=== PATIENT | female | born 1990 | race Caucasian/White ===

== ENCOUNTER 2017-01-23 03:22 | Inpatient (IN) | payer OTHER ==
[2017-01-23] MEDS ORDERED: SODIUM CHLORIDE 0.9% 500 ML INFUS.BAG IV ONE (03:58)
[2017-01-23] MEDS ORDERED: ACETAMINOPHEN 1000 MG/100 ML VIAL (NON FORMULARY) IVPB ONE (03:58)
[2017-01-23] MEDS ORDERED: CLINDAMYCIN 600MG PREMIX IVPB 50 ML IVPB ONE ×2 (03:58→04:36)
--- NOTE | 2017-01-23 04:00 | PDOC ---
History of Present Illness - General History Source: Patient Exam Limitations: No Limitations - History of Present Illness Initial Comments: 01/23/17 05:40 The patient is a 26-year-old female with a significant past medical history of asthma, anemia, gastritis, Von-Willebrand disease, and presents to the emergency department with difficulty swallowing and throat pain for 3 days. She reports she feels a lump in her throat, and is having difficulty talking and eating as well. She reports an associated headache for 3 days. She states her symptoms are worsening. The patient denies chest pain, shortness of breath, and dizziness. The patient denies fever, chills, nausea, vomit, diarrhea and constipation. The patient denies dysuria, frequency, urgency and hematuria. Allergies: penicillin, almonds, nuts, papaya seeds Past Surgical History: None reported Social History: No toxic habits reported <Nadja Cerna - Last Filed: 01/23/17 06:19> <Sumaya Pascual - Last Filed: 01/23/17 06:22> - General Chief Complaint: Pain Stated Complaint: CHEST PAIN Time Seen by Provider: 01/23/17 03:40 Past History <Nadja Cerna - Last Filed: 01/23/17 06:19> <Sumaya Pascual - Last Filed: 01/23/17 06:22> - Past Medical History Allergies/Adverse Reactions: Allergies Allergy/AdvReac Type Severity Reaction Status Date / Time Penicillins Allergy Severe Hives Verified 01/23/17 03:54 nuts Allergy Uncoded 01/23/17 03:54 Review of Systems - Review of Systems Able to Perform ROS?: Yes Comments:: 01/23/17 05:41 CONSTITUTIONAL: Absent: fever, chills, diaphoresis, generalized weakness, malaise, loss of appetite HEENT: Present: (+) throat swelling, (+) throat pain, (+) difficulty swallowing Absent: rhinorrhea, nasal congestion, mouth swelling, ear pain, eye pain, visual changes CARDIOVASCULAR: Absent: chest pain, syncope, palpitations, irregular heart rate, lightheadedness , peripheral edema RESPIRATORY: Absent: cough, shortness of breath, dyspnea with exertion, orthopnea, wheezing, stridor, hemoptysis GASTROINTESTINAL: Absent: abdominal pain, abdominal distension, nausea, vomiting, diarrhea, constipation, melena, hematochezia GENITOURINARY: Absent: dysuria, frequency, urgency, hesitancy, hematuria, flank pain, genital pain MUSCULOSKELETAL: Absent: myalgia, arthralgia, joint swelling SKIN: Absent: rash, itching, pallor HEMATOLOGIC/IMMUNOLOGIC: Absent: easy bleeding, easy bruising, lymphadenopathy, frequent infections ENDOCRINE: Absent: unexplained weight gain, unexplained weight loss, heat intolerance, cold intolerance NEUROLOGIC: Present: (+) headache Absent: focal weakness or paresthesias, dizziness, unsteady gait, seizure, mental status changes, bladder or bowel incontinence PSYCHIATRIC: Absent: anxiety, depression, suicidal or homicidal ideation, hallucinations. <Nadja Cerna - Last Filed: 01/23/17 06:19> *Physical Exam - Vital Signs Last Vital Signs Temp Pulse Resp BP Pulse Ox 99.9 F H 125 H 20 128/81 100 01/23/17 03:54 01/23/17 03:54 01/23/17 03:54 01/23/17 03:54 01/23/17 03:54 - Physical Exam Comments: 01/23/17 05:42 GENERAL: (+) Febrile. Well developed, well nourished. Awake and alert. No acute distress. HEENT: (+) Peritonsillar swelling bilaterally, left more than right, with large exudates bilaterally in tonsils. (+) Trismus. Normocephalic, atraumatic. PERRLA , EOMI. No conjunctival pallor. Sclera are non-icteric. (+) Dry mucous membranes. NECK: Supple. Full ROM. No JVD. Carotid pulses 2+ and symmetric, without bruits. No thyromegaly. No lymphadenopathy. CARDIOVASCULAR: (+) Tachycardic. Regular rhythm. No murmurs, rubs, or gallops. Distal pulses are 2+ and symmetric. PULMONARY: No evidence of respiratory distress. Lungs clear to auscultation bilaterally. No wheezing, rales or rhonchi. ABDOMINAL: Soft. Non-tender. Non-distended. No rebound or guarding. No organomegaly. Normoactive bowel sounds. MUSCULOSKELETAL Normal range of motion at all joints. No bony deformities or tenderness. No CVA tenderness. EXTREMITIES: No cyanosis. No clubbing. No edema. No calf tenderness. SKIN: Warm and dry. Normal capillary refill. No rashes. No jaundice. NEUROLOGICAL: Alert, awake, appropriate. Cranial nerves 2-12 intact. No deficits to light touch and temperature in face, upper extremities and lower extremities. No motor deficits in the in face, upper extremities and lower extremities. Normoreflexic in the upper and lower extremities. Normal speech. Toes are down- going bilaterally. PSYCHIATRIC: Cooperative. Good eye contact. Appropriate mood and affect. <Nadja Cerna - Last Filed: 01/23/17 06:19> ED Treatment Course - LABORATORY CBC & Chemistry Diagram: 01/23/17 04:30 01/23/17 04:30 - ADDITIONAL ORDERS Additional order review: Laboratory Results 01/23/17 01/23/17 04:30 04:30 Sodium 140 Potassium 3.3 L Chloride 102 Carbon Dioxide 28 Anion Gap 10 BUN 7 Creatinine 0.7 Creat Clearance w eGFR > 60 Random Glucose 105 Calcium 8.8 Total Bilirubin 0.9 AST 13 L ALT 18 Alkaline Phosphatase 87 Total Protein 7.6 Albumin 3.5 Blood Type O POSITIVE Antibody Screen Negative 01/23/17 04:30 RBC 4.58 MCV 78.4 L MCHC 32.4 RDW 13.5 MPV 7.6 Neutrophils % 85.2 H Lymphocytes % 5.3 L Monocytes % 9.2 Eosinophils % 0.1 Basophils % 0.2 - Medications Given in the ED: ED Medications Discontinued Medications Generic Name Dose Route Start Last Admin Trade Name Seferinoq PRN Reason Stop Dose Admin Acetaminophen 1,000 mg 01/23/17 03:58 01/23/17 04:51 Ofirmev Injection - IVPB 01/23/17 03:59 1,000 mg ONCE ONE Administration Clindamycin Phosphate 50 mls @ 100 mls/hr 01/23/17 03:58 01/23/17 04:52 Cleocin 600 Mg Premix Ivpb - IVPB 01/23/17 04:27 100 mls/hr ONCE ONE Administration Sodium Chloride 1,000 ml 01/23/17 03:58 01/23/17 04:52 Normal Saline - IV 01/23/17 03:59 1,000 ml ONCE ONE Administration <Nadja Cerna - Last Filed: 01/23/17 06:19> - LABORATORY CBC & Chemistry Diagram: 01/23/17 04:30 01/23/17 04:30 <Sumaya Pascual - Last Filed: 01/23/17 06:22> Medical Decision Making - Medical Decision Making 01/23/17 05:54 Pt comes with fever, tachycardia, body aches, 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 I will not incise the left LEHR OPERATOR which is griffiths than the right side, as she has a bleeding disorder. I will admit the patient for IV anx treatment with clindamycin and for IV hydration and repletion of her electrolytes. SHe also will require ENT consult for potential LEHR OPERATOR drainage <Sumaya Pascual - Last Filed: 01/23/17 06:22> *DC/Admit/Observation/Transfer - Attestations Scribe Attestion: 01/23/17 05:42 Documentation prepared by Nadja Cerna, acting as medical surgery nurse for Sumaya Pascual MD. <Nadja Cerna - Last Filed: 01/23/17 06:19> - Discharge Dispostion Admit: Yes <Sumaya Pascual - Last Filed: 01/23/17 06:22> Diagnosis at time of Disposition: Peritonsillar abscess, Dehydration, Fever, Von Willebrand disease, Penicillin allergy - Discharge Dispostion Condition at time of disposition: Guarded
[2017-01-23 04:06] VITALS: BMI 26.1
[2017-01-23] MEDS ORDERED: ACETAMINOPHEN INJECTION 100 ML IVPB ONE (04:36)
[2017-01-23 04:44] LABS: BASOPHIL 0.2 % (0-2.0); EOSINOPHIL 0.1 % (0-4.5); MCH 25.4 pg (25.7-33.7); MCHC 32.4 g/dl (32.0-36.0); MEAN CELL VOLUME 78.4 fl (80-96); MEAN PLT VOLUME 7.6 fl (7.5-11.1); NEUTROPHILS 85.2 % (42.8-82.8); PLATELET COUNT 234 K/MM3 (134-434); RDW 13.5 % (11.6-15.6); WHITE BLOOD COUNT 13.1 K/mm3 (4.0-10.0)
[2017-01-23 05:05] LABS: ALBUMIN 3.5 g/dl (3.4-5.0); ANION GAP 10 (8-16); CALCIUM 8.8 mg/dL (8.5-10.1); CO2 28 mmol/L (21-32); CREATININE 0.7 mg/dL (0.55-1.02); GLUCOSE,RANDOM 105 mg/dL (74-106); SGOT/AST 13 U/L (15-37); SGPT/ALT 18 U/L (12-78)
[2017-01-23 05:07] LABS: ALK PHOS 87 U/L (45-117); BILIRUBIN,TOTAL 0.9 mg/dL (0.2-1.0); TOT PROT 7.6 g/dl (6.4-8.2)
[2017-01-23] MEDS ORDERED: MAGNESIUM SULF 50% (8.12 MEQ/2 ML-1 GM VIAL) IVPB ONE (05:43)
[2017-01-23 05:46] LABS: INR 1.46 (0.82-1.09); PROTHROMBIN TIME (PATIENT) 16.2 SEC (9.98-11.88)
[2017-01-23] MEDS ORDERED: morphine CARPU-JECT 2 MG/1 ML DISP.SYRIN IVPUSH ONE ×3 (06:05→16:01)
[2017-01-23] MEDS ORDERED: MAGNESIUM SULF 50% (8.12 MEQ/2 ML-1 GM VIAL) ONE (06:21)
[2017-01-23] MEDS ORDERED: morphine CARPU-JECT 2 MG/1 ML DISP.SYRIN ONE (07:03)
[2017-01-23] MEDS ORDERED: SODIUM CHLORIDE 1,000 ML IV SCH (09:30)
[2017-01-23] MEDS ORDERED: DEXAMETHASONE SOD PHOSPHATE 10 MG/1 ML VIAL IVPB ONE (09:45)
--- NOTE | 2017-01-23 09:48 | PN ---
Teaching Attending Note Name of Resident: Ramona Blackwell ATTENDING PHYSICIAN STATEMENT I saw and evaluated the patient. I reviewed the resident's note and discussed the case with the resident. I agree with the resident's findings and plan as documented. SUBJECTIVE:26yo F c/o dysphagia since yesterday. 3 days ago began to have throat pain whom she saw her PMD who did throat swab and was told negative for strep and was given Zpack and motrin with no improvement. last night started to develop severe worsening pain assoc with drooling and sensation that her throat was closing. assoc with MORELAND and subjective fevers. has been treated for pharyngitis in the past but never this severe. denies CP, SOB, chills, N/V/C/D, recent dental work OBJECTIVE: Last Vital Signs Temp Pulse Resp BP Pulse Ox 99.6 F 108 H 20 117/66 100 01/23/17 09:00 01/23/17 09:00 01/23/17 09:00 01/23/17 09:00 01/23/17 07:00 General NAD HEENT erythematous abscess on L with deviation of the uvula. unable to appreciate any exudate. no stridor no LN, no throat tenderness. CV S1 S2 tachycardic Lungs CTA B/L no wheezing/rales/rhonchi ASSESSMENT AND PLAN: 26yo F wtih PMH asthma, GERD and VW deficiency presented to the ER with dysphagia 1. Sepsis due to Peritonsillar abscess- medicine admission. stat consult placed to ENT. CT with contrast soft tissues of the neck. NPO, NS @ 100cc/h, started on CLindamycin due to PCN allergy (angiodema), repeat rapid strep test, check BCx. pain control 2. Hypokalemia- Kcl 20meq add to IVF x1L 3. asthma- no signs of acute exacerbation. nebs prn 4. GERD- does not take medications at home. 5. DVT ppx- EAM
--- NOTE | 2017-01-23 10:13 | HP ---
CHIEF COMPLAINT: " Difficulty in swallowing, fever, chills" PCP: No PCP (wants to see a doctor in [facility]) HISTORY OF PRESENT ILLNESS: Patient is a 26 year old female past medical history of asthma, anemia, gastritis, Von-Willebrand disease presented to the ED with the chief complaints of difficulty in swallowing, fever, chills. As per the patient, she was apparently well until 4 days ago then suddenly she developed difficulty in swallowing. She went to urgent care 3 days ago, was given Z-sudhir and Motrin, has been taking it daily since 3 days but symptoms didn't get better, started getting worse. Patient mentions that she was drooling, had sob, palpitations due to pain and came in to the ED. In the past, she had pharyngitis but nothing severe. Difficulty in swallowing is associated with severe pain from left side of the neck and radiates to her ears. Also mentions that she had a temp of 104 F, associated with chills, rigors and sweating. Denies chest pain, abdominal pain, nausea or vomiting. Bowel/Bladder habit normal. Sleep/Appetite normal. 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 PAST MEDICAL HISTORY: asthma, anemia, gastritis, Von-Willebrand disease PAST SURGICAL HISTORY: None Social History: Smoking: Smokes Hookah occasionally Alcohol: Occasional Drugs: Denies Family History: Grandfather-Lung cancer; Aunt- cancer of the Upper GI tract. Allergies Penicillins Allergy Anaphylaxis (Severe, Verified 01/23/17 03:54) Hives nuts Allergy (Uncoded 01/23/17 03:54) HOME MEDICATIONS: Home Medications Medication Instructions Recorded Ascorbate Calcium [Vitamin C] 500 mg PO DAILY 01/23/17 Azithromycin [Zithromax -] 250 mg PO DAILY 01/23/17 Ibuprofen [Motrin -] 800 mg PO Q6H PRN 01/23/17 Pantoprazole Sodium [Protonix] 40 mg PO DAILY 01/23/17 REVIEW OF SYSTEMS CONSTITUTIONAL: Present: fever, chills, diaphoresis, generalized weakness, malaise, loss of appetite Absent: , weight change HEENT: Absent: rhinorrhea, nasal congestion, throat pain, throat swelling, difficulty swallowing, mouth swelling, ear pain, eye pain, visual changes CARDIOVASCULAR: Present: Palpitation Absent: chest pain, syncope, palpitations, irregular heart rate, lightheadedness , peripheral edema RESPIRATORY: Present: SOB Absent: cough, shortness of breath, dyspnea with exertion, orthopnea, wheezing, stridor, hemoptysis GASTROINTESTINAL: Absent: abdominal pain, abdominal distension, nausea, vomiting, diarrhea, constipation, melena, hematochezia GENITOURINARY: Absent: dysuria, frequency, urgency, hesitancy, hematuria, flank pain, genital pain MUSCULOSKELETAL: Absent: myalgia, arthralgia, joint swelling, back pain, neck pain SKIN: Absent: rash, itching, pallor HEMATOLOGIC/IMMUNOLOGIC: Absent: easy bleeding, easy bruising, lymphadenopathy, frequent infections ENDOCRINE: Absent: unexplained weight gain, unexplained weight loss, heat intolerance, cold intolerance NEUROLOGIC: Absent: headache, focal weakness or paresthesias, dizziness, unsteady gait, seizure, mental status changes, bladder or bowel incontinence PSYCHIATRIC: Absent: anxiety, depression, suicidal or homicidal ideation, hallucinations. PHYSICAL EXAMINATION Vital Signs - 24 hr 01/23/17 01/23/17 07:00 09:00 Temperature 99.6 F Pulse Rate 108 H Pulse Rate [ 100 H Right Radial] Respiratory 18 20 Rate Blood Pressure 117/66 Blood Pressure 122/80 [Left Arm] O2 Sat by Pulse 100 Oximetry (%) GENERAL: Young female, Awake, alert, and fully oriented, in no acute distress. HEAD: Normal with no signs of trauma. EYES: EOM intact, no pallor or icterus. EARS, NOSE, THROAT: Ears normal. Moist mucous membranes. NECK: Swelling on the Left > Right, Tender LN +, no erythema THROAT: Muffled voice, Unable to see the uvula, Left tonsillar enlargement with a pus draining on the right side of the swelling, not drooling, is spitting saliva. LUNGS: Breath sounds equal, clear to auscultation bilaterally. No wheezes, and no crackles. No accessory muscle use. HEART: Regular rate and rhythm, normal S1 and S2 without murmur, rub or gallop. ABDOMEN: Soft, nontender, not distended, normoactive bowel sounds, no guarding, no rebound, no masses. No hepatomegaly or splenomegaly. MUSCULOSKELETAL: Normal range of motion at all joints. No bony deformities or tenderness. No CVA tenderness. UPPER EXTREMITIES: 2+ pulses, warm, well-perfused. No cyanosis. No clubbing. No peripheral edema. LOWER EXTREMITIES: 2+ pulses, warm, well-perfused. No calf tenderness. No peripheral edema. NEUROLOGICAL: Cranial nerves II-XII intact. Normal speech. Normal gait. PSYCHIATRIC: Cooperative. Good eye contact. Appropriate mood and affect. SKIN: Warm, dry, normal turgor, no rashes or lesions noted, normal capillary refill. Laboratory Results - last 24 hr 01/23/17 06:30 Urine HCG, Qual Negative ASSESSMENT/PLAN: Patient is a 26 year old female past medical history of asthma, anemia, gastritis, Von-Willebrand disease presented to the ED with the chief complaints of difficulty in swallowing, fever, chills. # Sepsis most likely secondary to Peritonsillar abscess C/O difficulty and pain while swallowing x 4days, failed outpatient therapy with z-sudhir, Tmax at home 104 F, muffled voice leukocytosis of 13.1 ; In the ED, was given IV NS, IV Clindamycin ( Penicillin allergy) Admitted in Med-Surg Soft tissue neck CT with contrast done- 2.7 cm x 1.4 x 1.4 cm fluid collection in the left peritonsillar region consistent with abscess formation. IV NS @ 100mls/hr IV Clindamycin 600mg Q8H, would consider adding Vancomycin. IV Decadron 10mg once and IV Decadron 8mg Q8H and to decrease it tomorrow. Tylenol oral solution Q6H IV Morphine 1mg given once ENT consulted: Bed side Nasolaryngoscopy was done-no obstruction in airway. 3cc of pus came out while suctioning, throat culture sent, no I and D performed. Frequent checks overnight recommended. ID consult requested. # Von Willebrands disease Has no signs of bleeding at this time # Hypokalemia 3.3, will repeat and if it is still low, will replete # FEN IV NS @ 100mls/hr Electrolytes to be repeated in am NPO now until the procedure # Prophylaxis For DVT: Ambulating, so no AC FoR GI: Not indicated # Code status: Full Code # Dispo: Admitted in Med. Duration of stay unknown. Illness, Investigation and Plan of care explained to the patient. She verbalized understanding. Case seen and discussed with Dr. Bustillo. Visit type - Emergency Visit Emergency Visit: Yes ED Registration Date: 01/23/17 Care time: The patient presented to the Emergency Department on the above date and was hospitalized for further evaluation of their emergent condition. - New Patient This patient is new to me today: Yes Date on this admission: 01/23/17 - Critical Care Critical Care patient: No
[2017-01-23] MEDS: SODIUM CHLORIDE 1,000 ML IV SCH (10:38)
[2017-01-23] MEDS ORDERED: LIDOCAINE HCL 1%, 10 MG/ML (20ML VIAL) ONE (10:42)
[2017-01-23] MEDS ORDERED: EPINEPHrine 1:1,000 1 MG/1 ML - 30ML VIAL (INJECTION) ONE (10:42)
[2017-01-23] MEDS: CLINDAMYCIN 600MG PREMIX IVPB 50 ML IVPB SCH ×2 (11:26→17:36)
[2017-01-23] MEDS: ACETAMINOPHEN 650 MG/20.3 ML ORAL SOLUTION (CUPS) PO PRN ×2 (13:16→18:08)
[2017-01-23] MEDS ORDERED: KCL 10 MEQ IVPB 100 ML IVPB SCH (13:30)
[2017-01-23] MEDS ORDERED: TETRACAINE/BENZOCAINE/BUTAMBEN 20 GM SPR TP SCH (16:00)
--- NOTE | 2017-01-23 16:25 | CONSULT ---
Consult - text type - Consultation Consultation Note: CHIEF COMPLAINT: " throat pain, difficultly swallowinf HISTORY OF PRESENT ILLNESS: Patient is a 26 year old female past medical history of asthma, anemia, gastritis, Von-Willebrand disease presented to the ED with the chief complaints of difficulty in swallowing, fever, chills. As per the patient, she was apparently well until 4 days ago then suddenly she developed difficulty in swallowing. She went to urgent care 3 days ago, was given Z-sudhir and Motrin, has been taking it daily since 3 days but symptoms didn't get better, started getting worse. Patient reports progressing throat pain. She denies h/o tonsillitis but has reported h/o pharyngitis to others. She reports dysphagia and left neck pain which radiaes to her ear. Also mentions that she had a temp of 104 F, associated with chills, rigors and sweating. Denies chest pain, abdominal pain, nausea or vomiting. Bowel/Bladder habit normal. Sleep/Appetite normal. She reports feeling better since admission early in the AM. ER course was notable for: (1) Temp-99.6 F; Leukocytosis of 13.1, (2) Soft tissue x-ray, CXR (3) IV NS, IV Clindamycin- 600mg q8 on the floor She was given decadron 10mg at 1038 AM and has gotten 2 doses of clinda. 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 PAST MEDICAL HISTORY: asthma, anemia, gastritis, Von-Willebrand disease PAST SURGICAL HISTORY: None Social History: Smoking: Smokes Hookah occasionally Alcohol: Occasional Drugs: Denies Family History: Grandfather-Lung cancer; Aunt- cancer of the Upper GI tract. Allergies Penicillins Allergy Anaphylaxis (Severe, Verified 01/23/17 03:54) Hives nuts Allergy (Uncoded 01/23/17 03:54) HOME MEDICATIONS: Home Medications Medication Instructions Recorded Ascorbate Calcium [Vitamin C] 500 mg PO DAILY 01/23/17 Azithromycin [Zithromax -] 250 mg PO DAILY 01/23/17 Ibuprofen [Motrin -] 800 mg PO Q6H PRN 01/23/17 Pantoprazole Sodium [Protonix] 40 mg PO DAILY 01/23/17 REVIEW OF SYSTEMS CONSTITUTIONAL: Present: fever, chills, diaphoresis, generalized weakness, malaise, loss of appetite HEENT: Absent: rhinorrhea, nasal congestion CARDIOVASCULAR: Present: Palpitations on admission but these have resolved. Absent: chest pain, syncope, irregular heart rate, lightheadedness, peripheral edema RESPIRATORY: Absent: SOB, cough, shortness of breath, dyspnea with exertion, orthopnea, wheezing, stridor, hemoptysis GASTROINTESTINAL: Absent: abdominal pain, abdominal distension, nausea, vomiting, diarrhea, constipation, SKIN: Absent: rash, itching, pallor HEMATOLOGIC/IMMUNOLOGIC Present: easy bleeding Absent: frequent infections ENDOCRINE: Absent: unexplained weight gain, unexplained weight loss, heat intolerance, cold intolerance NEUROLOGIC: Absent: headache, focal weakness or paresthesias, dizziness, unsteady gait, seizure, mental status changes, bladder or bowel incontinence PSYCHIATRIC: Absent: anxiety, depression, suicidal or homicidal ideation, hallucinations. PHYSICAL EXAMINATION Vital Signs - 24 hr 01/23/17 01/23/17 07:00 09:00 Temperature 99.6 F Pulse Rate 108 H Pulse Rate [ 100 H Right Radial] Respiratory 18 20 Rate Blood Pressure 117/66 Blood Pressure 122/80 [Left Arm] O2 Sat by Pulse 100 Oximetry (%) GENERAL: Young female, Awake, alert, and fully oriented, in no acute distress. Voice: moderate hot potato voice HEAD: Normal with no signs of trauma. EYES: EOM intact, no pallor or icterus. EARS Ears normal. NC. Moist mucous membranes. NECK: Left neck + left neck tenderness THROAT: uvula is midline and there is bilateral tonsillar hypertrophy left > right with left tonsil with small area of sloughing tissue centrally which when I pressed on the left soft palate I was able to express about a 3 cc of purulence- culture taken. Neck : left neck tenderness and very mild induration no discrete mass. shoddy LAD on the left . LUNGS: Normal effort HEART: Regular rate and rhythm, normal S1 and S2 without murmur, rub or gallop. ABDOMEN: Soft, nontender, not distended, MUSCULOSKELETAL: Normal range of motion at all joints. No bony deformities or tenderness. EXTREMITIES: No cyanosis. No clubbing. No peripheral edema. NEUROLOGICAL: Cranial nerves II-XII intact. . PSYCHIATRIC: Cooperative. Good eye contact. Appropriate mood and affect. SKIN: Warm, dry, normal turgor, no rashes or lesions Laboratory Results - last 24 hr 01/23/17 06:30 Urine HCG, Qual Negative DFL: NC mild DNS to the left. OMC wnl. NPx: wnl. OC/OP: bilateral tonsilar hypertrophy with small area of sloughing tonsillar tissue on the left with mucopus draining through the necrotic appearing tissue. Hypophaynx laterl pharyngeal wall - no bulge. epiglottis wnl. Arytenoids (right and left ) wnl. VFs mobile bilaterally. Airway widely patent. Imaging Neck CT scan with contrast- images and report reviewed. An approximately 2.7 x 1.4 x 1.4 cm rim-enhancing fluid collection is seen within the left peritonsillar region consistent with abscess formation. The upper border of the abscess extends to the level of the upper oropharynx. The prevertebral and retropharyngeal soft tissue planes appear unremarkable. several mildly prominent posterior triangle and internal jugular chain lymph nodes are seen which are probably reactive in nature The remaining visualized soft tissue structures demonstrate no discrete CT abnormality. IMPRESSION: Left peritonsillar abscess as discussed above. ASSESSMENT/PLAN: Patient is a 26 year old female past medical history of asthma, anemia, gastritis, Von-Willebrand disease with tonsillitis, left peritonsillar abscess and phlegmon and sepsis. I was able to express approximately 3 cc of purulence which was cultured and it is draining spontaneously. Willl hold off on incision I and D given that i was able to express 3 cc of pus and improvement in symtpoms after this as well as patient's h/o Von-Willebrand disease and concern for bleeding in into the oroapharynx/parapharyngeal space. Recommend ID consult as pt is PCN allergic. Cont Decardon 8 q* and will taper as she improves. Patient admitted to medicine as she meets sepsis. criteria. Discussed plan with medical attending who agreed with plan. Will follow.
--- NOTE | 2017-01-23 17:24 | EKG ---
Test Reason : Blood Pressure : / mmHG Vent. Rate : 118 BPM Atrial Rate : 118 BPM P-R Int : 118 ms QRS Dur : 084 ms QT Int : 314 ms P-R-T Axes : 046 062 003 degrees QTc Int : 440 ms SINUS TACHYCARDIA POSSIBLE LEFT ATRIAL ENLARGEMENT BORDERLINE ECG NO PREVIOUS ECGS AVAILABLE Confirmed by MAULIK HEREDIA, ANUPAM ([id number]) on 01/23/2017 5:24:47 PM Referred By: Confirmed By:ANUPAM WILLINGHAM MD
[2017-01-23] MEDS: DEXAMETHASONE SOD PHOSPHATE 4 MG/1 ML VIAL IVPB SCH (18:08)
--- NOTE | 2017-01-24 01:51 | CONSULT ---
Consult - text type - Consultation Consultation Note: Progress note Patient reports doing much much better comfortable,. no drooling voice -much improved only very slight hot potato voice eomi perrla NC: Dns, nml mucosa. OC/OP: tonsils 3+ (decreased hypertrophy), still with small area of sloughing mucosa on the left tonsil. uvula mildline. soft plate- very slight induration. Wide extercusion. Neck: shoddy LAd, decrease left neck tenderness A/P: tonsillitis, left peritonsillar abscess and phlegmon, sepsis- much improved after several doses of clinda and IV steroids. Decrease decadron to 6mg and then 4 mg q 8. Cont Iv abx. OOB and ambulating in AM. Will follow.
[2017-01-24] MEDS: CLINDAMYCIN 600MG PREMIX IVPB 50 ML IVPB SCH ×2 (02:25→11:05)
[2017-01-24] MEDS: DEXAMETHASONE SOD PHOSPHATE 4 MG/1 ML VIAL IVPB SCH ×3 (03:05→20:18)
[2017-01-24 08:01] LABS: ANION GAP 8 (8-16); CALCIUM 8.4 mg/dL (8.5-10.1); CO2 26 mmol/L (21-32); CREATININE 0.4 mg/dL (0.55-1.02); GLUCOSE,RANDOM 133 mg/dL (74-106)
[2017-01-24 08:17] LABS: BASOPHIL 0.1 % (0-2.0); MCHC 33.3 g/dl (32.0-36.0); MEAN CELL VOLUME 78.1 fl (80-96); MEAN PLT VOLUME 7.8 fl (7.5-11.1); NEUTROPHILS 85.6 % (42.8-82.8); PLATELET COUNT 244 K/MM3 (134-434); RDW 13.4 % (11.6-15.6); WHITE BLOOD COUNT 8.3 K/mm3 (4.0-10.0)
[2017-01-24] MEDS ORDERED: PT OWN MED DRAWER 7, Y5N ONE (10:59)
[2017-01-24] MEDS: SODIUM CHLORIDE 1,000 ML IV SCH (11:04)
--- NOTE | 2017-01-24 12:02 | CONSULT ---
Consultation: REQUESTING PROVIDER: CONSULT REQUEST: We have been asked to medically evaluate this patient for peritonsillar abscess. HISTORY OF PRESENT ILLNESS: The patient presented about 2am on Tuesday with a 3 day history of headache, swelling and pain of the left jaw to ear with associated fever. About 4 days prior to presentation, she had noticed a small swelling on the left side of her face that gradually increased in size. She had no ear discharge or prior sore throat. On , she had a severe headache, had nausea and was vomiting and unable to eat. She was also very weak. She went to an urgent care facility where her throat swab for group A strep infection came out negative. She was prescribed Zpac (two doses) and high dose Ibuprofen (800mg) at the urgent care facility on Tuesday. She had some relief initially, but developed increasing fever, nausea and vomiting and increasing swelling of the jaw. She then presented at the ED with severe dysphagia, nausea and vomiting, swollen left jaw and fever. She had imaging done in the ED and had a subcutaneous needle drainage of the abscess done to avoid bleeding, since she has Von Willebrand's disease. Prior to presentation, she had lost her voice but has recovered it today. She had a pharyngitis four months ago that resolved with Zpac. She is also able to eat now and has had no fever since admission. She had some mild cough at the onset of the illness and some chest tightness that she attributes to her ingestion of ibuprofen with her background gastritis. She also complained of a burning sensation in her genitourinary area which she thinks is related to the antibiotic ingestion. No suprapubic pain or flank pain. Since her admission, she has had a repeat throat swab done, a chest CT, and soft tissue imaging of the neck done confirming the abscess. She had 2 doses of clindamycin and began to have redness of the face on the second dose today and burning sensation. The clindamycin has been stopped and switched to vancomycin and flagyl following the dose of levofloxacin today. Drug Allergy:Patient is severely allergic to penicillin and has bronchospasm when she takes penicillin. 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 PMHX: She is a known asthmatic with gastritis, anemia, von Willebrands disease She has a history of recurrent vaginal fungal infection with itching. 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 Denies smoking cigarettes but smokes hooker occasionally. Medication HX: On lansoprazole, desmopressin, uses an epipen REVIEW OF SYSTEMS: CONSTITUTIONAL: Absent: fever, chills, diaphoresis, generalized weakness, malaise, loss of appetite, weight change HEENT: Absent: rhinorrhea, nasal congestion, mild throat pain, mild L throat swelling , no difficulty swallowing, no mouth swelling, no ear pain, eye pain, visual changes CARDIOVASCULAR: Absent: chest pain, syncope, palpitations, irregular heart rate, lightheadedness , peripheral edema RESPIRATORY: Absent: cough, shortness of breath, dyspnea with exertion, orthopnea, wheezing, stridor, hemoptysis GASTROINTESTINAL: Absent: mild epigastric pain, has a history of gastritis, on lansoprazole, no abdominal distension, no nausea, no vomiting, no diarrhea, no constipation, no melena, no hematochezia GENITOURINARY: Absent: dysuria, frequency, urgency, hesitancy, hematuria, flank pain, genital pain MUSCULOSKELETAL: Absent: myalgia, arthralgia, joint swelling, back pain, neck pain SKIN: Absent: rash, itching, pallor HEMATOLOGIC/IMMUNOLOGIC: Has a history of Von Willebrand's disease on desmopressin, no easy bleeding, no easy bruising, no lymphadenopathy, frequent infections. Had tonsillar infections 4 months ago, other than present episode ENDOCRINE: Absent: unexplained weight gain, unexplained weight loss, heat intolerance, cold intolerance NEUROLOGIC: Absent: headache, focal weakness or paresthesias, dizziness, unsteady gait, seizure, mental status changes, bladder or bowel incontinence PSYCHIATRIC: Absent: anxiety, depression, suicidal or homicidal ideation, hallucinations. PHYSICAL EXAMINATION Vital Signs - 24 hr 01/23/17 01/23/17 01/23/17 15:11 21:00 23:00 Temperature 99.3 F 98.9 F Pulse Rate 99 H 87 Respiratory 16 Rate Blood Pressure 137/69 O2 Sat by Pulse 96 Oximetry (%) 01/24/17 01/24/17 01:37 06:11 Temperature 98.5 F 98.5 F Pulse Rate 75 73 Respiratory 18 18 Rate Blood Pressure 107/58 119/66 O2 Sat by Pulse Oximetry (%) GENERAL: Awake, alert, and fully oriented, in no acute distress. HEAD: Normal with no signs of trauma. Mild redness below both eyes bilaterally and extending to left jaw margin. EYES: Pupils equal, round and reactive to light, extraocular movements intact, sclera anicteric, conjunctiva clear. No lid lag. EARS, NOSE, THROAT: Ears normal, nares patent, oropharynx, enlarged tonsils without exudates. Moist mucous membranes. NECK: Normal range of motion, supple without lymphadenopathy, JVD, or masses. LUNGS: Breath sounds equal, clear to auscultation bilaterally. No wheezes, and no crackles. No accessory muscle use. HEART: Regular rate and rhythm, normal S1 and S2 without murmur, rub or gallop. ABDOMEN: Soft, nontender, not distended, normoactive bowel sounds, no guarding, no rebound, no masses. No hepatomegaly or splenomegaly. Mild epigatric tenderness. MUSCULOSKELETAL: Normal range of motion at all joints. No bony deformities or tenderness. No CVA tenderness. UPPER EXTREMITIES: 2+ pulses, warm, well-perfused. No cyanosis. No clubbing. Cap refill <2 seconds. No peripheral edema. LOWER EXTREMITIES: 2+ pulses, warm, well-perfused. No calf tenderness. No peripheral edema. NEUROLOGICAL: Cranial nerves II-XII intact. Normal speech. Normal gait. PSYCHIATRIC: Cooperative. Good eye contact. Appropriate mood and affect. SKIN: Warm, dry, normal turgor, no rashes or lesions noted. Laboratory Results - last 24 hr 01/24/17 01/24/17 06:30 06:30 WBC 8.3 D RBC 4.00 Hgb 10.4 L D Hct 31.3 L MCV 78.1 L MCHC 33.3 RDW 13.4 Plt Count 244 MPV 7.8 Neutrophils % 85.6 H Lymphocytes % 10.4 D Monocytes % 3.9 Eosinophils % 0.0 D Basophils % 0.1 Sodium 141 Potassium 3.8 Chloride 107 Carbon Dioxide 26 Anion Gap 8 BUN 7 Creatinine 0.4 L D Random Glucose 133 H D Calcium 8.4 L Active Medications Generic Name Dose Route Start Last Admin Trade Name Freq PRN Reason Stop Dose Admin Acetaminophen 650 mg 01/23/17 10:17 01/23/17 18:08 Tylenol Oral Solution - PO 650 mg Q6H PRN Administration FEVER OR PAIN Benzocaine/Butamben/Tetracaine HCl 1 spray 01/23/17 16:00 01/23/17 17:37 Cetacaine [place] - TP 1 spray DAILY KALPESH Administration Dexamethasone Sodium Phosphate 8 mg 01/23/17 18:00 01/24/17 03:05 Decadron Injection - IVPB 8 mg Q8H-IV KALPESH Administration Clindamycin Phosphate 50 mls @ 100 mls/hr 01/23/17 10:00 01/24/17 11:05 Cleocin 600 Mg Premix Ivpb - IVPB 100 mls/hr Q8H-IV KALPESH Administration Sodium Chloride 1,000 mls @ 100 mls/hr 01/23/17 09:48 01/24/17 11:04 Normal Saline - IV 100 mls/hr ASDIR KALPESH Administration Nystatin 1 applic 01/24/17 10:00 Nystop Powder - TP DAILY KALPESH ASSESSMENT/PLAN: peritonsillar abscess, resolving post-percutaneous drainage of abscess. Patient is improved, resolving fever and can now swallow. penicillin allergy clindamycin allergy likely UTI Plan: Stop clindamycin, start vancomycin and flagyl and continue decadron. Continue Levofloxacin Dispo: We will continue to follow the patient. Thank you for this consultative opportunity. plan is to stop clindamycin, start vancomycin and flagyl and continue decadron. Active Medications Acetaminophen (Tylenol Oral Solution -) 650 mg PO Q6H PRN PRN Reason: FEVER OR PAIN Last Admin: 01/23/17 18:08 Dose: 650 mg Benzocaine/Butamben/Tetracaine HCl (Cetacaine [place] -) 1 spray TP DAILY KALPESH Last Admin: 01/23/17 17:37 Dose: 1 spray Dexamethasone Sodium Phosphate (Decadron Injection -) 8 mg IVPB Q8H-IV KALPESH Last Admin: 01/24/17 12:37 Dose: 8 mg Metronidazole (Flagyl 500mg Premixed Ivpb -) 100 mls @ 100 mls/hr IVPB Q8H-IV KALPESH Last Admin: 01/24/17 14:17 Dose: 100 mls/hr Nystatin (Nystop Powder -) 1 applic TP DAILY KALPESH Vancomycin HCl (Vancomycin (Pre-Docked)) 1,000 mg IVPB BID@0200,1400 KALPESH PRN Reason: Protocol Problem List - Problems (1) Peritonsillar abscess Code(s): J36 - PERITONSILLAR ABSCESS (2) Penicillin allergy Assessment/Plan: give vancomycin and flagyl Code(s): Z88.0 - ALLERGY STATUS TO PENICILLIN (3) Clindamycin adverse reaction Code(s): T36.8X5A - ADVERSE EFFECT OF OTHER SYSTEMIC ANTIBIOTICS, INIT ENCNTR Visit type - Emergency Visit Emergency Visit: No - New Patient This patient is new to me today: Yes Date on this admission: 01/24/17 - Critical Care Critical Care patient: No Admitting History and Physical - Past Medical History ...LMP: 01/16/17 ...LMP Comment: today is 7th day ...: No - Smoking History Smoking history: Never smoked - Alcohol/Substance Use Hx Alcohol Use: No History of Present Illness - General History Source: Patient Exam Limitations: No Limitations - History of Present Illness Timing/Duration: reports: changing over time Severity: reports: mild, moderate Possible Cause: Yes: no prior episodes Modifying Factors: improves with: other Associated Symptoms: denies: earache, nasal drainage, shortness of breath, sinus infection, wheezing Aspirin Received prior to arrival: Yes: no aspirin today Beta Benny Given by EMS(Core Measure): No Beta Benny Taken at Home(Core Measure): No Beta Benny Not Indicated at this Time(Core Measure): No
--- NOTE | 2017-01-24 12:52 | PN ---
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
--- NOTE | 2017-01-24 13:01 | PN ---
Teaching Attending Note Name of Resident: Cynthia Marcial ATTENDING PHYSICIAN STATEMENT I saw and evaluated the patient. I reviewed the resident's note and discussed the case with the resident. I agree with the resident's findings and plan as documented. 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 admitted with fever, worsening throat pain since she was seen in [facility] on Tuesday- had negative strep screen and was given zithromax symptoms persisted and she came to ED on tue/tuesday am- ct scan showed peritonsillar abscess she was started on clindamycin and decadron, abscess was drained by ent at the bedside-3 cc pus cultures were sent this am she developed facial flushing and rash on her cheeks after receiving clindamycin swallowing improved- able to eat now smokes hookah recent strep throat several months ago SUBJECTIVE: Vital Signs Period Temp Pulse Resp BP Sys/Gates Pulse Ox Last 24 Hr 98.5 F-99.3 F 73-99 16-18 107-137/58-69 96 fading facial rash no trismus, opens mouth easily enlarged tonsils no exudates noted neck supple cor-rrr lungs clear abd soft,nt ext no edema no rash CBC, BMP 01/24/17 06:30 01/24/17 06:30 Microbiology 01/23/17 10:45 Blood - Peripheral Venous Blood Culture - Preliminary NO GROWTH OBTAINED AFTER 24 HOURS, INCUBATION TO CONTINUE FOR 4 DAYS. 01/23/17 10:45 Blood - Peripheral Venous Blood Culture - Preliminary NO GROWTH OBTAINED AFTER 24 HOURS, INCUBATION TO CONTINUE FOR 4 DAYS. 01/23/17 12:00 Throat Throat Culture - Final NO BETA HEMOLYTIC STREPTOCOCCI ISOLATED 01/23/17 12:00 Throat Group A Strep Rapid Antigen - Final ASSESSMENT AND PLAN: peritonsillar abscess penicillin allergy clindamycin allergy often the abscess can be polymicrobial (bean if group a strep screen is negative vancomycin/flagyl need MRSA coverage as well as anaerobic coverage d/w Dr Barba Problem List - Problems (1) Peritonsillar abscess Code(s): J36 - PERITONSILLAR ABSCESS (2) Penicillin allergy Code(s): Z88.0 - ALLERGY STATUS TO PENICILLIN (3) Clindamycin adverse reaction Code(s): T36.8X5A - ADVERSE EFFECT OF OTHER SYSTEMIC ANTIBIOTICS, INIT ENCNTR
[2017-01-24 13:15] LABS: URINE APPEARANCE SLCLOUDY; URINE BILIRUBIN NEGATIVE (NEGATIVE); URINE COLOR YELLOW; URINE GLUCOSE (UA) 3+ (NEGATIVE); URINE KETONE NEGATIVE (NEGATIVE); URINE NITRITE NEGATIVE (NEGATIVE); URINE PROTEIN NEGATIVE (NEGATIVE); URINE UROBILINOGEN 4.0 E.U/dl E.U./dl (0.2-1.0)
[2017-01-24] MEDS ORDERED: LEVOFLOXACIN 500 MG IVPB 100 ML IVPB SCH ×2 (13:15→15:00)
[2017-01-24 13:18] LABS: URINE BLOOD 3+ (NEGATIVE); URINE LEUK ESTERASE 3+ (NEGATIVE)
[2017-01-24 13:46] LABS: URINE MUCUS RARE; URINE RBC 7 /hpf (0-3); URINE WBC 12 /hpf (3-5)
[2017-01-24] MEDS: METRONIDAZOLE 500 MG PREMIXED 100 ML IVPB SCH ×2 (14:17→20:55)
[2017-01-24] MEDS ORDERED: LEVOFLOXACIN 500 MG IVPB 100 ML IVPB ONE (14:43)
--- NOTE | 2017-01-24 14:44 | PN ---
Teaching Attending Note Name of Resident: Fior Willis ATTENDING PHYSICIAN STATEMENT I saw and evaluated the patient. I reviewed the resident's note and discussed the case with the resident. I agree with the resident's findings and plan as documented. SUBJECTIVE:c/o dyuria and urinary frequency. currently menstruating. states pain has improved. no drooling or spitting up saliva. tolerating diet. denies CP , SOB,fever, chills, N/V/C/D OBJECTIVE: Last Vital Signs Temp Pulse Resp BP Pulse Ox 98.5 F 73 18 119/66 96 01/24/17 06:11 01/24/17 06:11 01/24/17 06:11 01/24/17 06:11 01/23/17 21:00 General NAD HEENT erythematous abscess on L with exudate. no tenderness of the pharynx. CV S1 S2 RRR no murmur/rub/gallop Lungs CTA B/L no wheezing/rales/rhonchi genital -refused ASSESSMENT AND PLAN: 26yo F wtih PMH asthma, GERD and VW deficiency presented to the ER with dysphagia 1. Sepsis due to Peritonsillar abscess- clincally improved. afebrile. ENT did not drain due to VW disease. was able to manually express some discharge. cx pending. allergic reaction to Clindamycin this AM (rash on face) no reaction yesterday. ID consulted and switched to vanco and flagyl. Rapid strep negative. f/u cx. d/c IVF 2. Dysuria- check UA 3. Hypokalemia- resolved 4. asthma- no signs of acute exacerbation. nebs prn 5. GERD- does not take medications at home. 6. DVT ppx- EAM
--- NOTE | 2017-01-24 16:37 | PN ---
Physical Exam: SUBJECTIVE: Patient seen and examined at bedside. Overnight, patient continued to have L sided ear and throat pain, as well as nausea. Patient also endorsed vaginal burning. Today, patient is feeling better and drooling less, and her L sided ear pain is better. However, in the middle of the day, she developed a red, non-raised blanching rash on her face. ID was consulted and Dr. Church saw the patient. Patient has no other active complaints such as shortness of breath, fever, chills, or vomiting, diarrhea. OBJECTIVE: Vital Signs Period Temp Pulse Resp BP Sys/Gates Pulse Ox Last 24 Hr 98.5 F-98.9 F 73-87 16-18 107-137/58-69 96 GENERAL: The patient is awake, alert, and fully oriented, in no acute distress. HEAD: Normal with no signs of trauma. EYES: PERRL, extraocular movements intact, sclera anicteric, conjunctiva clear. No ptosis. ENT: tenderness elicited on the L side of the neck NECK: Trachea midline, full range of motion, supple. LUNGS: Breath sounds equal, clear to auscultation bilaterally, no wheezes, no crackles, no accessory muscle use. HEART: Regular rate and rhythm, S1, S2 without murmur, rub or gallop. ABDOMEN: Soft, nontender, nondistended, normoactive bowel sounds, no guarding, no rebound, no hepatosplenomegaly, no masses. EXTREMITIES: 2+ posterior tibial pulses, warm, well-perfused, no edema. NEUROLOGICAL: Cranial nerves II through XII grossly intact. Normal speech, gait not observed. Laboratory Results - last 24 hr 01/24/17 01/24/17 01/24/17 06:30 06:30 11:30 WBC 8.3 D RBC 4.00 Hgb 10.4 L D Hct 31.3 L MCV 78.1 L MCHC 33.3 RDW 13.4 Plt Count 244 MPV 7.8 Neutrophils % 85.6 H Lymphocytes % 10.4 D Monocytes % 3.9 Eosinophils % 0.0 D Basophils % 0.1 Sodium 141 Potassium 3.8 Chloride 107 Carbon Dioxide 26 Anion Gap 8 BUN 7 Creatinine 0.4 L D Random Glucose 133 H D Calcium 8.4 L Urine Color Yellow Urine Appearance Slcloudy Urine pH 6.0 Urine Protein Negative Urine Glucose (UA) 3+ H Urine Ketones Negative Urine Blood 3+ H Urine Nitrite Negative Urine Bilirubin Negative Urine Urobilinogen 4.0 e.u/dl H Ur Leukocyte Esterase 3+ H Urine RBC 7 Urine WBC 12 Ur Epithelial Cells Few Urine Mucus Rare Active Medications Generic Name Dose Route Start Last Admin Trade Name Freq PRN Reason Stop Dose Admin Acetaminophen 650 mg 01/23/17 10:17 01/23/17 18:08 Tylenol Oral Solution - PO 650 mg Q6H PRN Administration FEVER OR PAIN Benzocaine/Butamben/Tetracaine HCl 1 spray 01/23/17 16:00 01/23/17 17:37 Cetacaine [place] - TP 1 spray DAILY KALPESH Administration Dexamethasone Sodium Phosphate 8 mg 01/23/17 18:00 01/24/17 12:37 Decadron Injection - IVPB 8 mg Q8H-IV KALPESH Administration Metronidazole 100 mls @ 100 mls/hr 01/24/17 13:15 01/24/17 14:17 Flagyl 500mg Premixed Ivpb - IVPB 100 mls/hr Q8H-IV KALPESH Administration Nystatin 1 applic 01/24/17 10:00 Nystop Powder - TP DAILY KALPESH Vancomycin HCl 1,000 mg 01/24/17 14:00 Vancomycin (Pre-Docked) IVPB BID@0200,1400 [facility] Protocol ASSESSMENT/PLAN: This is a 26 year-old female with PMH asthma, anemia, gastritis, Von-willebrand disease, who presented to the emergency department with difficulty swallowing and throat pain for three days. Patient is admitted for sepsis secondary to peritonsillar abscess. 1. Sepsis secondary to peritonsillar abscess -Patient currently afebrile -Abscess drained by Dr. Briseno at bedside yesterday, however was not fully drained due to worry that patient may bleed as she has Von-willebrand disease -ID was consulted today Dr. Church for rash on face, patient is allergic to penicillin. Patient switched to flagyl and vancomycin for anaerobic and staph coverage. -Throat cultures pending -rapid strep test negative -Continue Decadron 8mg IVPOB Q8hr as per Dr. Briseno plan to taper (6 mg, 4mg) -Continue Cetacaine spray 2. UTI -complaining of dysuria, -urinalysis was ordered, leukocyte esterase + -continue Levaquin 500mg IVPB q24 3. DVT prophylaxis -SCDs 4. Fluids/electrolytes/nutrition -Soft diet due to peritonsillar abscess Visit type - Emergency Visit Emergency Visit: No - New Patient This patient is new to me today: No - Critical Care Critical Care patient: No
[2017-01-24] MEDS: NYSTATIN POWDER 100,000 UNITS/GM - 15 GM TOPICAL POWDER TP SCH (16:52)
[2017-01-24] MEDS ORDERED: PANTOPRAZOLE 40 MG TABLET (FP) PO ONE (17:57)
[2017-01-24] MEDS ORDERED: MAG HYDROX/AL HYDROX/SIMETH 30 ML UNIT-DOSE CUP PO ONE (17:58)
[2017-01-24] MEDS: VANCOMYCIN 1 GRAM (PRE-DOCKED) 1,000 MG/250 ML BAG IVPB SCH (18:18)
--- NOTE | 2017-01-24 22:18 | PN ---
Progress Note, Physician History of Present Illness: OHNS PN seen at lunch. feeling better, less throat and ear pain. no SOB. - Current Medication List Current Medications: Active Medications Acetaminophen (Tylenol Oral Solution -) 650 mg PO Q6H PRN PRN Reason: FEVER OR PAIN Last Admin: 01/23/17 18:08 Dose: 650 mg Benzocaine/Butamben/Tetracaine HCl (Cetacaine [place] -) 1 spray TP DAILY KALPESH Last Admin: 01/23/17 17:37 Dose: 1 spray Dexamethasone Sodium Phosphate (Decadron Injection -) 8 mg IVPB Q8H-IV KALPESH Last Admin: 01/24/17 20:18 Dose: 8 mg Metronidazole (Flagyl 500mg Premixed Ivpb -) 100 mls @ 100 mls/hr IVPB Q8H-IV KALPESH Last Admin: 01/24/17 20:55 Dose: 100 mls/hr Levofloxacin (Levaquin 500 Mg Premixed Ivpb -) 100 mls @ 100 mls/hr IVPB DAILY KALPESH Nystatin (Nystop Powder -) 1 applic TP DAILY KALPESH Last Admin: 01/24/17 16:52 Dose: 1 applic Vancomycin HCl (Vancomycin (Pre-Docked)) 1,000 mg IVPB BID@0200,1400 KALPESH PRN Reason: Protocol Last Admin: 01/24/17 18:18 Dose: 1,000 mg - Objective Vital Signs: Vital Signs Temperature 98.4 F 01/24/17 22:00 Pulse Rate 66 01/24/17 22:00 Respiratory Rate 18 01/24/17 22:00 Blood Pressure 114/63 01/24/17 22:00 O2 Sat by Pulse Oximetry (%) 96 01/24/17 09:00 Constitutional: Yes: Well Nourished, No Distress, Calm, Other (nml voice. no stridor/stertor. no drooling. eating lunch. (otoscope not available - defer to Dr Briseno's assessment. otalgia likely referred)) HENT: Yes: Other (tonsils 2+ cryptic, symmetrical, no appreciation of fullness/ fluctuance/ongoing PITCH FLAKER. 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 Briseno, f/u cx. Not incised given her von willebrands. - no airway concern clinically; defer given done yesterday. - Cx pending - ID consulting, on levaquin, flagyl, and vanco. +UTI - taper steroids - dr briseno to re-evaluate tmrw - appreciate medical care
[2017-01-25] MEDS: DEXAMETHASONE SOD PHOSPHATE 4 MG/1 ML VIAL IVPB SCH ×2 (01:22→12:35)
[2017-01-25] MEDS ORDERED: ALBUTEROL SO4 2.5/IPRATROPIUM 0.5 INH SOL 3 ML VIAL.NEB. NEB ONE (01:42)
[2017-01-25] MEDS: METRONIDAZOLE 500 MG PREMIXED 100 ML IVPB SCH ×3 (01:54→17:30)
[2017-01-25] MEDS: VANCOMYCIN 1 GRAM (PRE-DOCKED) 1,000 MG/250 ML BAG IVPB SCH ×2 (03:09→14:54)
[2017-01-25] MEDS ORDERED: MAG HYDROX/AL HYDROX/SIMETH 30 ML UNIT-DOSE CUP PO ONE (05:03)
[2017-01-25 07:30] LABS: BASOPHIL 0.1 % (0-2.0); MCH 25.7 pg (25.7-33.7); MEAN CELL VOLUME 77.9 fl (80-96); MEAN PLT VOLUME 7.8 fl (7.5-11.1); NEUTROPHILS 84.2 % (42.8-82.8); PLATELET COUNT 252 K/MM3 (134-434); RDW 13.2 % (11.6-15.6); WHITE BLOOD COUNT 8.8 K/mm3 (4.0-10.0)
--- NOTE | 2017-01-25 09:56 | PN ---
Progress Note (short form) - Note Progress Note: feeling better voice is normal less ear discomfort c/o abdominal pain Vital Signs Period Temp Pulse Resp BP Sys/Gates Pulse Ox Last 24 Hr 98.4 F-98.9 F 56-74 18-18 110-128/59-68 100 no cervical adenopathy cor-rrr lungs clear abd soft,nt +midepigastric tenderness to palpation ext no edema CBC, BMP 01/25/17 06:00 01/24/17 06:30 Microbiology 01/23/17 15:45 Throat Throat Culture - Final NO BETA HEMOLYTIC STREPTOCOCCI ISOLATED 01/23/17 10:45 Blood - Peripheral Venous Blood Culture - Preliminary NO GROWTH OBTAINED AFTER 24 HOURS, INCUBATION TO CONTINUE FOR 4 DAYS. 01/23/17 10:45 Blood - Peripheral Venous Blood Culture - Preliminary NO GROWTH OBTAINED AFTER 24 HOURS, INCUBATION TO CONTINUE FOR 4 DAYS. 01/23/17 12:00 Throat Throat Culture - Final NO BETA HEMOLYTIC STREPTOCOCCI ISOLATED 01/23/17 12:00 Throat Group A Strep Rapid Antigen - Final a/p peritonsillar abscess- f/u cultures continue same antibiotics today, taper steroids ?uti- on levaquin, no urine culture sent gastritis pen/clind allergy vanco/levaquin/flagyl, hopefully po antibiotics in am d/w hospitilist Problem List - Problems (1) Peritonsillar abscess Code(s): J36 - PERITONSILLAR ABSCESS (2) Penicillin allergy Code(s): Z88.0 - ALLERGY STATUS TO PENICILLIN (3) Clindamycin adverse reaction Code(s): T36.8X5A - ADVERSE EFFECT OF OTHER SYSTEMIC ANTIBIOTICS, INIT ENCNTR
[2017-01-25] MEDS ORDERED: PT OWN MED DRAWER 7, Y5N ONE (09:59)
--- NOTE | 2017-01-25 10:10 | PN ---
Progress Note (short form) - Note Progress Note: c/o burning epigastric pain intermittently. facial rash mostly resolved. voice improved. denies CP, SOB, fever, chills, N/V/C/D Current Medications Generic Name Dose Route Start Last Admin Trade Name Freq PRN Reason Stop Dose Admin Acetaminophen 650 mg 01/23/17 10:17 01/23/17 18:08 Tylenol Oral Solution - PO 650 mg Q6H PRN Administration FEVER OR PAIN Benzocaine/Butamben/Tetracaine HCl 1 spray 01/23/17 16:00 01/23/17 17:37 Cetacaine [place] - TP 1 spray DAILY [facility] Administration Dexamethasone Sodium Phosphate 8 mg 01/23/17 18:00 01/25/17 01:22 Decadron Injection - IVPB 8 mg Q8H-IV [facility] Administration Metronidazole 100 mls @ 100 mls/hr 01/24/17 13:15 01/25/17 01:54 Flagyl 500mg Premixed Ivpb - IVPB 100 mls/hr Q8H-IV [facility] Administration Levofloxacin 100 mls @ 100 mls/hr 01/25/17 10:00 Levaquin 500 Mg Premixed Ivpb - IVPB DAILY [facility] Nystatin 1 applic 01/24/17 10:00 01/24/17 16:52 Nystop Powder - TP 1 applic DAILY [facility] Administration Vancomycin HCl 1,000 mg 01/24/17 14:00 01/25/17 03:09 Vancomycin (Pre-Docked) IVPB 1,000 mg BID@0200,1400 [facility] Administration Protocol Last Vital Signs Temp Pulse Resp BP Pulse Ox 98.5 F 56 L 18 110/59 100 01/25/17 06:00 01/25/17 06:00 01/25/17 06:00 01/25/17 06:00 01/24/17 21:00 General NAD, mild erythema to cheekbone. no vesicles or rash, no drainage or tenderness HEENT +L sided abscess, smaller than yesterday, no pharynx tenderness or edema. CV S1 S2 RRR no murmur/rub/gallop Lungs CTA B/L no wheezing/rales/rhonchi genital -+clumpy white discharge, no erythema or ulcers noted on labia ASSESSMENT AND PLAN: 26yo F wtih PMH asthma, GERD and VW deficiency presented to the ER with dysphagia 1. Sepsis due to Peritonsillar abscess- clincally improved. afebrile. phonation returned to baseline. abscess clinically looks significantly improved since presentation, Cx re-plated as not sent as abscess culture. will decrease dex to 4mg q8h. start protonix to GI protection as well as GERD like symptoms. cont vanco/flagyl/levaquin day 2. initially received 2 days of Clindamycin. ENT to re -evaluate today. 2. UTI- +yeast on exam. will give diflucan po x1mg. (hospital only has vaginal applicators for 7 day treatment), d/c nystatin powder 3. Hypokalemia- resolved 4. asthma- no signs of acute exacerbation. nebs prn 5. GERD- start protonix po while on abx/steroid therapy. 6. DVT ppx- EAM Visit type - Emergency Visit Emergency Visit: Yes ED Registration Date: 01/23/17 Care time: The patient presented to the Emergency Department on the above date and was hospitalized for further evaluation of their emergent condition. - New Patient This patient is new to me today: No - Critical Care Critical Care patient: No - Discharge Referral Referred to [facility] Med P.C.: No
[2017-01-25] MEDS ORDERED: DEXAMETHASONE SOD PHOSPHATE 4 MG/1 ML VIAL IVPB SCH (10:30)
[2017-01-25] MEDS ORDERED: FLUCONAZOLE 150 MG TABLET PO ONE (11:00)
[2017-01-25] MEDS: LEVOFLOXACIN 500 MG IVPB 100 ML IVPB SCH (11:46)
[2017-01-25] MEDS: PANTOPRAZOLE 40 MG TABLET (FP) PO SCH (11:46)
[2017-01-25] MEDS: DEXAMETHASONE SOD PHOSPHATE 10 MG/1 ML VIAL IVPB SCH ×2 (12:37→17:30)
[2017-01-25] MEDS: NYSTATIN POWDER 100,000 UNITS/GM - 15 GM TOPICAL POWDER TP SCH (16:47)
--- NOTE | 2017-01-25 17:06 | PN ---
Progress Note (short form) - Note Progress Note: ENT Patient reports that her throat feels much better better only very slight discomfort. She is eating drinking normally. She is now focused on her epigastric pain. Denies CP, SOB, fever, chills, N/V/C/D Current Medications Generic Name Dose Route Start Last Admin Trade Name Freq PRN Reason Stop Dose Admin Acetaminophen 650 mg 01/23/17 10:17 01/23/17 18:08 Tylenol Oral Solution - PO 650 mg Q6H PRN Administration FEVER OR PAIN Benzocaine/Butamben/Tetracaine HCl 1 spray 01/23/17 16:00 01/23/17 17:37 Cetacaine [place] - TP 1 spray DAILY [facility] Administration Dexamethasone Sodium Phosphate 8 mg 01/23/17 18:00 01/25/17 01:22 Decadron Injection - IVPB 8 mg Q8H-IV [facility] Administration Metronidazole 100 mls @ 100 mls/hr 01/24/17 13:15 01/25/17 01:54 Flagyl 500mg Premixed Ivpb - IVPB 100 mls/hr Q8H-IV [facility] Administration Levofloxacin 100 mls @ 100 mls/hr 01/25/17 10:00 Levaquin 500 Mg Premixed Ivpb - IVPB DAILY [facility] Nystatin 1 applic 01/24/17 10:00 01/24/17 16:52 Nystop Powder - TP 1 applic DAILY [facility] Administration Vancomycin HCl 1,000 mg 01/24/17 14:00 01/25/17 03:09 Vancomycin (Pre-Docked) IVPB 1,000 mg BID@0200,1400 [facility] Administration Protocol Last Vital Signs Temp Pulse Resp BP Pulse Ox 98.5 F 56 L 18 110/59 100 01/25/17 06:00 01/25/17 06:00 01/25/17 06:00 01/25/17 06:00 01/24/17 21:00 General NAD, voice- nml (hot potato voice resolved) EOMI Auricles wnl NC: mucosa and ITs wnl Oc/OP: Left soft palate with minimal pertonsillar induration - much improved. uvula midlin. No purulence on L tonsil. Only very slight left neck tenderness. ASSESSMENT AND PLAN: 26yo F wtih PMH asthma, GERD and VW deficiency presented to the ER with dysphagia and peritonsillar abcess/acute pharyngitis and dysphagia. left perotonsillar abscess- improved. WBC wnl. Cont to decrease steroids. She was switched from clinda to Levaquin because adverse event. Cont antibiotics- can switch to oral antibiotics from ENT standpoint. Dysphagia resolved. Medicine to manage GERD and UTI.
[2017-01-26] MEDS: METRONIDAZOLE 500 MG PREMIXED 100 ML IVPB SCH ×2 (01:20→10:37)
[2017-01-26] MEDS: DEXAMETHASONE SOD PHOSPHATE 10 MG/1 ML VIAL IVPB SCH (01:20)
[2017-01-26] MEDS: VANCOMYCIN 1 GRAM (PRE-DOCKED) 1,000 MG/250 ML BAG IVPB SCH (01:24)
[2017-01-26] MEDS ORDERED: DEXAMETHASONE SOD PHOSPHATE 10 MG/1 ML VIAL IVPB SCH ×2 (07:44→10:00)
[2017-01-26] MEDS: PANTOPRAZOLE 40 MG TABLET (FP) PO SCH (09:36)
[2017-01-26] MEDS: LEVOFLOXACIN 500 MG IVPB 100 ML IVPB SCH (11:51)
--- NOTE | 2017-01-26 12:30 | PN ---
Teaching Attending Note Name of Resident: Fior Willis ATTENDING PHYSICIAN STATEMENT I saw and evaluated the patient. I reviewed the resident's note and discussed the case with the resident. I agree with the resident's findings and plan as documented. SUBJECTIVE:clinically improved. continues to have some epigastric tenderness. tolerating diet, no drooling, difficulty controlling salvia, fever, chills, throat pain, N/V/C/D OBJECTIVE: Last Vital Signs Temp Pulse Resp BP Pulse Ox 97.8 F 53 L 20 137/77 100 01/26/17 05:38 01/26/17 05:38 01/26/17 05:38 01/26/17 05:38 01/25/17 20:39 General NAD, HEENT no pharynx erythema or swelling no exudate. no throat tenderness Abdomen soft NT/ND no rebound or guarding ASSESSMENT AND PLAN: 26yo F wtih PMH asthma, GERD and VW deficiency presented to the ER with dysphagia 1. Sepsis due to Peritonsillar abscess- clincally improved. afebrile. phonation returned to baseline. nothing significant visualized on exam. will await final WCx report. adjust abx accordingly per ID. will titrate dex to 4BID x2days and then 2daily x2 prior to stopping. will have to be re-evaluated by ENT as outpatient. facial erythema due to clindamycin has resolved. currently on vanco/ flagyl/levaquin day 3. 2. UTI- received diflucan yesterday, reports conitnues to have white discharge. will give another dilfucan dose in 48H. (72H from initial dose) 3. Hypokalemia- resolved 4. asthma- no signs of acute exacerbation. nebs prn 5. GERD-2 week PPI trial. likely aggravated by steroid use 6. DVT ppx- EAM 7. d/c home today
--- NOTE | 2017-01-26 12:55 | PN ---
Progress Note, Physician Chief Complaint: No more neck swelling or pain No more dysphagia complaining of vaginal itching lower abdominal pain mild hyperemia under eyes bilaterally no fevers - Current Medication List Current Medications: Active Medications Acetaminophen (Tylenol Oral Solution -) 650 mg PO Q6H PRN PRN Reason: FEVER OR PAIN Last Admin: 01/23/17 18:08 Dose: 650 mg Benzocaine/Butamben/Tetracaine HCl (Cetacaine [place] -) 1 spray TP DAILY [facility] Last Admin: 01/23/17 17:37 Dose: 1 spray Dexamethasone Sodium Phosphate (Decadron Injection -) 4 mg IVPB Q8H-IV [facility] Stop: 01/26/17 23:55 Last Admin: 01/26/17 09:36 Dose: 4 mg Metronidazole (Flagyl 500mg Premixed Ivpb -) 100 mls @ 100 mls/hr IVPB Q8H-IV [facility] Last Admin: 01/26/17 10:37 Dose: 100 mls/hr Levofloxacin (Levaquin 500 Mg Premixed Ivpb -) 100 mls @ 100 mls/hr IVPB DAILY [facility] Last Admin: 01/26/17 11:51 Dose: 100 mls/hr Pantoprazole Sodium (Protonix -) 40 mg PO DAILY [facility] Last Admin: 01/26/17 09:36 Dose: 40 mg Vancomycin HCl (Vancomycin (Pre-Docked)) 1,000 mg IVPB BID@0200,1400 [facility] PRN Reason: Protocol Last Admin: 01/26/17 01:24 Dose: 1,000 mg - Objective Vital Signs: Vital Signs Temperature 97.8 F 01/26/17 05:38 Pulse Rate 53 L 01/26/17 05:38 Respiratory Rate 20 01/26/17 05:38 Blood Pressure 137/77 01/26/17 05:38 O2 Sat by Pulse Oximetry (%) 100 01/25/17 20:39 Constitutional: Yes: No Distress Eyes: Yes: Other (Mild hyperemia of skin under both eyes extending to jaw line bilaterally) HENT: No: Drooling, Nasal Congestion, Pharyngeal Erythema, Tonsillar Exudate Cardiovascular: Yes: Regular Rate and Rhythm, S1, S2 Respiratory: Yes: CTA Bilaterally. No: Cough, SOB, Stridor, Tachypnea, Wheezes Gastrointestinal: Yes: Soft, Other (mild suprapubic tenderness) ...Rectal Exam: Yes: Deferred Genitourinary: No: CVA Tenderness - Left, CVA Tenderness - Right Breast(s): Yes: WNL Extremities: Yes: WNL Edema: No Integumentary: Yes: WNL Neurological: Yes: Alert, Oriented ...Motor Strength: WNL Psychiatric: Yes: WNL Labs: CBC, BMP 01/25/17 06:00 01/24/17 06:30 INR, PTT INR 1.46 (0.82-1.09) H 01/23/17 04:30 - ....Imaging Chest X-ray: Report Reviewed Problem List - Problems (1) Peritonsillar abscess Assessment/Plan: Doing well- no more fever, no more swelling or dysphagia 3rd day on antibiotic Continue for 14 days total on oral flagyl and levaquin For discharge today Side effects of flagyl and alcohol explained to her For her to follow up with ENT as an outpatient Code(s): J36 - PERITONSILLAR ABSCESS (2) Penicillin allergy Code(s): Z88.0 - ALLERGY STATUS TO PENICILLIN (3) Clindamycin adverse reaction Code(s): T36.8X5A - ADVERSE EFFECT OF OTHER SYSTEMIC ANTIBIOTICS, INIT ENCNTR Visit type - Emergency Visit Emergency Visit: No - New Patient This patient is new to me today: No Date on this admission: 01/26/17 - Critical Care Critical Care patient: No - Discharge Referral Referred to [facility] Med P.C.: No
--- NOTE | 2017-01-26 13:34 | PN ---
Progress Note (short form) - Note Progress Note: feeling better voice is normal doing well Vital Signs Period Temp Pulse Resp BP Sys/Gates Pulse Ox Last 24 Hr 97.1 F-98 F 52-69 18-20 115-137/54-77 98-100 cor-rrr lungs clear abd soft,nt ext no edema CBC, BMP 01/25/17 06:00 01/24/17 06:30 Microbiology 01/23/17 15:45 Abscess Gram Stain - Final 01/23/17 15:45 Abscess Wound Culture - Preliminary Streptococcus Viridans Diphtheroid/Corynebacterium 01/23/17 10:45 Blood - Peripheral Venous Blood Culture - Preliminary NO GROWTH OBTAINED AFTER 72 HOURS, INCUBATION TO CONTINUE FOR 2 DAYS. 01/23/17 10:45 Blood - Peripheral Venous Blood Culture - Preliminary NO GROWTH OBTAINED AFTER 72 HOURS, INCUBATION TO CONTINUE FOR 2 DAYS. 01/23/17 15:45 Throat Throat Culture - Final NO BETA HEMOLYTIC STREPTOCOCCI ISOLATED 01/23/17 12:00 Throat Throat Culture - Final NO BETA HEMOLYTIC STREPTOCOCCI ISOLATED 01/23/17 12:00 Throat Group A Strep Rapid Antigen - Final a/p peritonsillar abscess- switch to po levaquin and flagyl to complete 14 days, no etoh while taking flagyl pen/clindamycin allergy gastritis ent f/u Problem List - Problems (1) Peritonsillar abscess Code(s): J36 - PERITONSILLAR ABSCESS (2) Penicillin allergy Code(s): Z88.0 - ALLERGY STATUS TO PENICILLIN (3) Clindamycin adverse reaction Code(s): T36.8X5A - ADVERSE EFFECT OF OTHER SYSTEMIC ANTIBIOTICS, INIT ENCNTR
[2017-01-26 14:31] VITALS: BP 115/68; PULSE 70; TEMP 98.2
--- NOTE | 2017-01-26 16:29 | DS ---
Physical Exam: SUBJECTIVE: Patient seen and examined at bedside. No acute events overnight. Patient had fleeting feeling of having "double vision." She wears glasses. Patient's abdominal discomfort and vaginal itching is decreased from yesterday. Denies any headache, weakness, shortness of breath, or other symptoms. OBJECTIVE: Vital Signs Period Temp Pulse Resp BP Sys/Gates Pulse Ox Last 24 Hr 97.6 F-98.2 F 52-70 18-20 115-137/54-77 98-100 PHYSICAL EXAM GENERAL: The patient is awake, alert, and fully oriented, in no acute distress. HEAD: Normal with no signs of trauma. EYES: PERRL, extraocular movements intact, conjunctiva clear. ENT: L peritonsillar abscess not visible, healed NECK: Trachea midline, L neck- no tenderness to palpation LUNGS: Breath sounds equal, clear to auscultation bilaterally, no wheezes, no crackles, no accessory muscle use. HEART: Regular rate and rhythm, S1, S2 without murmur, rub or gallop. ABDOMEN: Soft, nontender, nondistended, normoactive bowel sounds, no guarding, no rebound EXTREMITIES: 2+ pulses, warm, well-perfused, no edema. NEUROLOGICAL: Cranial nerves II through XII grossly intact. LABS Selected Entries 01/23/17 01/23/17 01/23/17 03:54 07:00 09:00 Temperature 99.9 F H 99.6 F Pulse Rate Pulse Rate [ 100 H Right Radial] Blood Pressure 128/81 117/66 Blood Pressure 122/80 [Left Arm] 01/23/17 01/23/17 01/26/17 15:11 23:00 05:38 Temperature 99.3 F 98.9 F 97.8 F Pulse Rate 53 L Pulse Rate [ Right Radial] Blood Pressure 137/69 137/77 Blood Pressure [Left Arm] 01/26/17 01/26/17 10:00 14:30 Temperature 97.8 F 98.2 F Pulse Rate 62 70 Pulse Rate [ Right Radial] Blood Pressure 117/54 115/68 Blood Pressure [Left Arm] Laboratory Tests 01/23/17 01/23/17 01/23/17 04:30 04:30 04:30 WBC 13.1 H Hgb Hct MCV 78.4 L Neutrophils % 85.2 H Lymphocytes % 5.3 L INR 1.46 H Potassium 3.3 L Creatinine Random Glucose Calcium AST 13 L 01/24/17 01/24/17 01/25/17 06:30 06:30 06:00 WBC 8.3 D 8.8 Hgb 10.4 L D 10.1 L Hct 31.3 L 30.5 L MCV 78.1 L 77.9 L Neutrophils % 85.6 H 84.2 H Lymphocytes % 10.4 D 11.2 INR Potassium Creatinine 0.4 L D Random Glucose 133 H D Calcium 8.4 L AST Microbiology 01/23/17 15:45 Throat Throat Culture - Final NO BETA HEMOLYTIC STREPTOCOCCI ISOLATED 01/23/17 15:45 Abscess Gram Stain - Final 01/23/17 15:45 Abscess Wound Culture - Final Streptococcus Viridans Diphtheroid/Corynebacterium 01/23/17 12:00 Throat Throat Culture - Final 01/23/17 12:00 Throat Group A Strep Rapid Antigen - Final NO BETA HEMOLYTIC STREPTOCOCCI ISOLATED 01/23/17 10:45 Blood - Peripheral Venous Blood Culture - Preliminary NO GROWTH OBTAINED AFTER 72 HOURS, INCUBATION TO CONTINUE FOR 2 DAYS. 01/23/17 10:45 Blood - Peripheral Venous Blood Culture - Preliminary NO GROWTH OBTAINED AFTER 72 HOURS, INCUBATION TO CONTINUE FOR [address]ECK SOFT TISSUE CT 01/23/17(with contrast) Clinical information: peritonsillar abscess multiplanar imaging was performed following the intravenous administration of nonionic contrast An approximately 2.7 x 1.4 x 1.4 cm rim- enhancing fluid collection is seen within the left peritonsillar region consistent with abscess formation. The upper border of the abscess extends to the level of the upper oropharynx. Due to swelling within the left peritonsillar region there is minimal to mild airway narrowing. The prevertebral and retropharyngeal soft tissue planes appear unremarkable. several mildly prominent posterior triangle and internal jugular chain lymph nodes are seen which are probably reactive in nature The remaining visualized soft tissue structures demonstrate no discrete CT abnormality. IMPRESSION: Left peritonsillar abscess as discussed above. HOSPITAL COURSE: Date of Admission:01/23/17 Date of Discharge: 01/26/17 Admit diagnosis: sepsis secondary to peritonsillar abscess Pre-hospital course Patient is a 26 year old female past medical history of pharyngitis, asthma, anemia, gastritis, Von-Willebrand disease who presented to the ED with difficulty in swallowing, fever, and chills. As per the patient, she was well until 4 days ago then suddenly developed difficulty in swallowing. She went to urgent care 3 days prior, was given Z-sudhir and Motrin, but her symptoms were not alleviated. Patient mentioned that she was drooling, febrile (with a temp of 104F) with chills, had SOB, and palpitations due to pain during this time, so she came to the ED. ER course was notable for: (1) Temp-99.6 F; Leukocytosis of 13.1, (2) Soft tissue x-ray (3) IV NS, IV Clindamycin Hospital course Patient's soft tissue neck CT done on 01/23/17 revealed L peritonsillar abscess formation. Patient was thus started on IV clindamycin 600 mg Q8H and IV Decadron 8 mg Q8H to decrease symptoms. She was also on Tyenol oral solution Q6H and IV morphine to help control her pain. ENT was on board and Dr. Briseno drained most of the abscess at bedside via nasolaryngoscopy. She recommended a Decadron taper from 8mg to 6mg to 4mg and has continued to follow-up on the patient, noting that her condition has greatly improved since her admission. Throat cultures were sent and returned, showing no B hemolytic strep, and wound cultures revealed strep viridans and corynebacterium/diptheroid, which are normal mouth reese organisms. Patient had an allergic reaction to Clindamycin ( rash on face), so ID was consulted, and she was switched to vancomycin and flagyl. Protonix was also added to her treatment, as she experienced some gastric discomfort with such antibiotics. A few days into the admission, patient also developed a yeast infection and Levaquin was added to the regime. Her vaginal itching has subsequently improved. Minutes to complete discharge: 35 Discharge Summary Reason For Visit: PERITONSILLAR ABSCESS, DEHYDRATION, FEVER Current Active Problems Clindamycin adverse reaction (Acute) Peritonsillar abscess (Acute) UTI (urinary tract infection) (Acute) Yeast vaginitis (Acute) Condition: Improved - Instructions Diet, Activity, Other Instructions: You were recently admitted to the hospital for a peritonsillar abscess. Please complete your antibiotic course (14 days in total) of the following medications: -Levaquin 1 tablet (500mg) by mouth and flagyl 1 tablet (500 mg) by mouth every 8 hours. Your next dose for the Flagyl should be 4:30pm (this afternoon). Avoid any alcoholic drinks while taking flagyl. -Continue decadron (steroid) starting tomorrow take 1 tablet twice a day for 2 days then take half a tablet once a day for 2 days -Protonix 1 tablet 40mg by mouth -Take fluconazole on Tuesday if you continue to have burning on urination and white discharge. Make sure you drink lots of water while taking these medications. Please go to the pharmacy today to pick remover your prescriptions because you need to take them tonight. We would also like you to follow-up with Dr. Briseno (ENT doctor), who saw you in the hospital, as well as your primary care doctor in 1 week. If you have any chest pain, shortness of breath, trouble swallowing, or any new symptoms, please return to the hospital. Referrals: Howard Briseno MD [Staff Physician] - Disposition: HOME - Home Medications Comprehensive Discharge Medication List: Ambulatory Orders Ascorbate Calcium [Vitamin C] 500 mg PO DAILY 01/23/17 Dexamethasone 4 mg PO BID #5 tablet 01/26/17 Fluconazole 150 mg PO ONCE #1 tablet 01/26/17 Levofloxacin [Levaquin -] 500 mg PO DAILY #11 tablet 01/26/17 Metronidazole [Flagyl -] 500 mg PO Q8H #33 tablet 01/26/17 Pantoprazole Sodium [Protonix] 40 mg PO DAILY #11 tab 01/26/17 This patient is new to me today: No Emergency Visit: No Critical Care patient: No - Discharge Referral Referred to [facility] Med P.C.: No
[2017-01-29] MEDS ORDERED: DEXAMETHASONE 4 MG TABLET (FP) PO ONE (10:00)
== END 2017-01-26 16:58 | disposition home or self-care (01) | DRG 872 ==
LOC: JER 03:22 → JERBED 06:22 → J7W 07:46
PROVIDERS: ADMIT Internal Medicine; ATTEND Internal Medicine
DX: A41.9 Sepsis, unspecified organism (principal); J36 Peritonsillar abscess; D68.0 Von Willebrand disease; N39.0 Urinary tract infection, site not specified; E87.6 Hypokalemia; E86.0 Dehydration; N76.0 Acute vaginitis; B96.89 Other specified bacterial agents as the cause of diseases classified elsewhere; Z88.0 Allergy status to penicillin; J45.909 Unspecified asthma, uncomplicated; K21.9 Gastro-esophageal reflux disease without esophagitis
CPT/HCPCS: 36415; 70360-TC; 70491-TC; 71010-TC; 80048; 80053; 81003; 81015; 84703; 85025; 85610; 86850; 86900; 86901; 87040; 87070; 87205; 87430; 93005; 93010; 94640; 99281-25; 99285-25

== ENCOUNTER 2017-08-21 14:06 | Emergency (ER) | payer OTHER ==
[2017-08-21 14:14] VITALS: BMI 27.6
[2017-08-21 16:40] LABS: BASO % 0.3 % (0-2.0); EOS % 2.3 % (0-4.5); HEMATOCRIT 42.2 % (32.4-45.2); HEMOGLOBIN 13.8 GM/dL (10.7-15.3); MCHC 32.7 g/dl (32.0-36.0); MEAN CELL VOLUME 76.4 fl (80-96); MEAN PLT VOLUME 7.6 fl (7.5-11.1); MONO % 5.7 % (3.8-10.2); NEUT % 70.7 % (42.8-82.8); PLATELET COUNT 351 K/MM3 (134-434); RBC 5.52 M/mm3 (3.60-5.2); RDW 21.5 % (11.6-15.6); WHITE BLOOD COUNT 10.1 K/mm3 (4.0-10.0)
[2017-08-21 16:47] LABS: ADD RBC MORPHOLOGY YES
[2017-08-21 16:54] LABS: URINE APPEARANCE CLEAR; URINE BILIRUBIN NEGATIVE (NEGATIVE); URINE BLOOD NEGATIVE (NEGATIVE); URINE COLOR YELLOW; URINE GLUCOSE (UA) NEGATIVE (NEGATIVE); URINE KETONE 1+ (NEGATIVE); URINE NITRITE NEGATIVE (NEGATIVE); URINE PROTEIN NEGATIVE (NEGATIVE)
[2017-08-21 16:56] LABS: URINE LEUK ESTERASE 2+ (NEGATIVE)
[2017-08-21 16:57] LABS: EPI CELLS RARE /HPF (FEW); URINE BACTERIA RARE /hpf (NONE SEEN); URINE MUCUS RARE
[2017-08-21 17:09] LABS: ANISOCYTOSIS 2+
[2017-08-21 17:10] LABS: PLATELET ESTIMATE ADEQUATE
[2017-08-21 17:21] LABS: ALBUMIN 4.2 g/dl (3.4-5.0); ALK PHOS 81 U/L (45-117); ANION GAP 7 (8-16); BILIRUBIN,TOTAL 0.7 mg/dL (0.2-1.0); BLOOD UREA NITROGEN 7 mg/dL (7-18); CALCIUM 9.6 mg/dL (8.5-10.1); CHLORIDE 103 mmol/L (98-107); CO2 28 mmol/L (21-32); CREATININE 0.6 mg/dL (0.55-1.02); GLUCOSE,RANDOM 96 mg/dL (74-106); POTASSIUM 3.9 mmol/L (3.5-5.1); SGOT/AST 12 U/L (15-37); SGPT/ALT 25 U/L (12-78); SODIUM 138 mmol/L (136-145); TOT PROT 8.5 g/dl (6.4-8.2)
[2017-08-21 18:47] VITALS: BP 125/78; PULSE 78; TEMP 98.4
--- NOTE | 2017-08-21 19:00 | PDOC ---
History of Present Illness - General History Source: Patient Exam Limitations: No Limitations - History of Present Illness Initial Comments: 08/21/17 19:03 The patient is a 26 year old female, , with a significant past medical history of recurrent yeast infections and anemia who presents to the ED with several days of abdominal cramping and vaginal discharge. The patient states she visited her PCP on Tuesday for generalized weakness and was told she was . Patient states she visited her OBGYN on Tuesday. Since then, patient reports intermittent lower quadrant cramping. She also reports vaginal discharge that she describes as brown, sticky and like cottage cheese. Patient reports taking diflucan with no relief. Denies fever or chills. Denies nausea, vomiting, or diarrhea. Denies chest pain or shortness of breath. Denies any other symptoms. <Reyes Saavedra - Last Filed: 08/21/17 20:08> <Anais Hernandez - Last Filed: 08/21/17 20:37> - General Chief Complaint: Pain Stated Complaint: ABDONINAL PAIN Time Seen by Provider: 08/21/17 16:26 Past History <Reyes Saavedra - Last Filed: 08/21/17 20:08> - Past Medical History Anemia: Yes Asthma: Yes COPD: No GI Disorders: Yes (GERD) Other medical history: von uday bran disease - Reproductive History Is Patient Now?: Yes (#): 1 - Suicide/Smoking/Psychosocial Hx Smoking History: Never smoked Hx Alcohol Use: No Drug/Substance Use Hx: No Substance Use Type: None <Anais Hernandez - Last Filed: 08/21/17 20:37> - Past Medical History Allergies/Adverse Reactions: Allergies Allergy/AdvReac Type Severity Reaction Status Date / Time clindamycin phosphate Allergy Severe Rash Verified 08/21/17 14:14 [From Cleocin] Penicillins Allergy Severe Difficulty Verified 08/21/17 14:14 Breathing nuts Allergy Uncoded 08/21/17 14:14 Home Medications: Ambulatory Orders Fluconazole 150 mg PO PRN PRN 08/21/17 Vit Calc,Iron,Folic [ Vitamins] 1 each PO DAILY 08/21/17 Review of Systems - Review of Systems Able to Perform ROS?: Yes Comments:: 08/21/17 19:03 CONSTITUTIONAL: + generalized weakness Absent: fever, chills, diaphoresis, generalized weakness, malaise, loss of appetite HEENT: Absent: rhinorrhea, nasal congestion, throat pain, throat swelling, difficulty swallowing, mouth swelling, ear pain, eye pain, visual Changes CARDIOVASCULAR: Absent: chest pain, syncope, palpitations, irregular heart rate, lightheadedness , peripheral edema RESPIRATORY: Absent: cough, shortness of breath, dyspnea with exertion, orthopnea, wheezing, stridor, hemoptysis GASTROINTESTINAL:+ abdominal cramping Absent:, abdominal distension, nausea, vomiting, diarrhea, constipation, melena , hematochezia GENITOURINARY: + vaginal discharge Absent: dysuria, frequency, urgency, hesitancy, hematuria, flank pain, genital pain MUSCULOSKELETAL: Absent: myalgia, arthralgia, joint swelling SKIN: Absent: rash, itching, pallor HEMATOLOGIC/IMMUNOLOGIC: Absent: easy bleeding, easy bruising, lymphadenopathy, frequent infections ENDOCRINE: Absent: unexplained weight gain, unexplained weight loss, heat intolerance, cold intolerance NEUROLOGIC: Absent: headache, focal weakness or paresthesias, dizziness, unsteady gait, seizure, mental status changes, bladder or bowel incontinence PSYCHIATRIC: Absent: anxiety, depression, suicidal or homicidal ideation, hallucinations. All Other Systems: Reviewed and Negative <Reyes Saavedra - Last Filed: 08/21/17 20:08> *Physical Exam - Vital Signs Last Vital Signs Temp Pulse Resp BP Pulse Ox 98.4 F 78 17 125/78 98 08/21/17 18:46 08/21/17 18:46 08/21/17 18:46 08/21/17 18:46 08/21/17 18:46 - Physical Exam Comments: 08/21/17 19:03 GENERAL: Well developed, well nourished. Awake and alert. No acute distress. HEENT: Normocephalic, atraumatic. PERRLA, EOMI. No conjunctival pallor. Sclera are non- icteric. Moist mucous membranes. NECK: Supple. Full ROM. No JVD. Carotid pulses 2+ and symmetric, without bruits. No thyromegaly. NCo lymphadenopathy. CARDIOVASCULAR: Regular rate and rhythm. No murmurs, rubs, or gallops. Distal pulses are 2+ and symmetric. PULMONARY: No evidence of respiratory distress. Lungs clear to auscultation bilaterally. No wheezing, rales or rhonchi. ABDOMINAL: Soft. Non-tender. Non-distended. No rebound or guarding. No organomegaly. Normoactive bowel sounds. MUSCULOSKELETAL Normal range of motion at all joints. No bony deformities or tenderness. No CVA tenderness. EXTREMITIES: No cyanosis. No clubbing. No edema. No calf tenderness. SKIN: Warm and dry. Normal capillary refill. No rashes. No jaundice. NEUROLOGICAL: Alert, awake, appropriate. Cranial nerves 2-12 intact. No deficits to light touch and temperature in face, upper extremities and lower extremities. No motor deficits in the in face, upper extremities and lower extremities. Normoreflexic in the upper and lower extremities. Normal speech. Toes are down- going bilaterally. Gait is normal without ataxia. PSYCHIATRIC: Cooperative. Good eye contact. Appropriate mood and affect. <Reyes Saavedra - Last Filed: 08/21/17 20:08> - Vital Signs Last Vital Signs Temp Pulse Resp BP Pulse Ox 98.4 F 78 17 125/78 98 08/21/17 18:46 08/21/17 18:46 08/21/17 18:46 08/21/17 18:46 08/21/17 18:46 <Anais Hernandez - Last Filed: 08/21/17 20:37> ED Treatment Course - LABORATORY CBC & Chemistry Diagram: 08/21/17 16:35 08/21/17 16:35 - ADDITIONAL ORDERS Additional order review: Laboratory Results 08/21/17 08/21/17 08/21/17 16:40 16:35 16:35 Sodium Potassium Chloride Carbon Dioxide Anion Gap BUN Creatinine Creat Clearance w eGFR Random Glucose Calcium Total Bilirubin AST ALT Alkaline Phosphatase Total Protein Albumin Beta HCG, Quant 1199.5 Urine Color Yellow Urine Appearance Clear Urine pH 6.0 Ur Specific [place] 1.016 Urine Protein Negative Urine Glucose (UA) Negative Urine Ketones 1+ H Urine Blood Negative Urine Nitrite Negative Urine Bilirubin Negative Urine Urobilinogen 2.0 H Ur Leukocyte Esterase 2+ H Urine WBC (Auto) 5 Urine RBC (Auto) 2 Ur Epithelial Cells Rare Urine Bacteria Rare Urine Mucus Rare Blood Type O POSITIVE Antibody Screen Negative 08/21/17 16:35 Sodium 138 Potassium 3.9 Chloride 103 Carbon Dioxide 28 Anion Gap 7 L BUN 7 Creatinine 0.6 Creat Clearance w eGFR > 60 Random Glucose 96 Calcium 9.6 Total Bilirubin 0.7 D AST 12 L ALT 25 Alkaline Phosphatase 81 Total Protein 8.5 H Albumin 4.2 Beta HCG, Quant Urine Color Urine Appearance Urine pH Ur Specific [place] Urine Protein Urine Glucose (UA) Urine Ketones Urine Blood Urine Nitrite Urine Bilirubin Urine Urobilinogen Ur Leukocyte Esterase Urine WBC (Auto) Urine RBC (Auto) Ur Epithelial Cells Urine Bacteria Urine Mucus Blood Type Antibody Screen 08/21/17 16:35 RBC 5.52 H D MCV 76.4 L MCHC 32.7 RDW 21.5 H D MPV 7.6 Neutrophils % 70.7 Lymphocytes % 21.0 D Monocytes % 5.7 Eosinophils % 2.3 D Basophils % 0.3 - RADIOLOGY Radiograph Interpretation: 08/21/17 20:08 EXAM: LESS THAN 14 WEEKS OBSTETRICAL ULTRASOUND IMPRESSION:No viable intrauterine . The differential diagnosis would include an early intrauterine , an anembryonic , incomplete spontaneous and extrauterine gestation. Recommend followup with beta-hCG, repeat ultrasound if indicated clinically. 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 <Reyes Saavedra - Last Filed: 08/21/17 20:08> - LABORATORY CBC & Chemistry Diagram: 08/21/17 16:35 08/21/17 16:35 - ADDITIONAL ORDERS Additional order review: Laboratory Results 08/21/17 08/21/17 08/21/17 16:40 16:35 16:35 Sodium Potassium Chloride Carbon Dioxide Anion Gap BUN Creatinine Creat Clearance w eGFR Random Glucose Calcium Total Bilirubin AST ALT Alkaline Phosphatase Total Protein Albumin Beta HCG, Quant 1199.5 Urine Color Yellow Urine Appearance Clear Urine pH 6.0 Ur Specific [place] 1.016 Urine Protein Negative Urine Glucose (UA) Negative Urine Ketones 1+ H Urine Blood Negative Urine Nitrite Negative Urine Bilirubin Negative Urine Urobilinogen 2.0 H Ur Leukocyte Esterase 2+ H Urine WBC (Auto) 5 Urine RBC (Auto) 2 Ur Epithelial Cells Rare Urine Bacteria Rare Urine Mucus Rare Blood Type O POSITIVE Antibody Screen Negative 08/21/17 16:35 Sodium 138 Potassium 3.9 Chloride 103 Carbon Dioxide 28 Anion Gap 7 L BUN 7 Creatinine 0.6 Creat Clearance w eGFR > 60 Random Glucose 96 Calcium 9.6 Total Bilirubin 0.7 D AST 12 L ALT 25 Alkaline Phosphatase 81 Total Protein 8.5 H Albumin 4.2 Beta HCG, Quant Urine Color Urine Appearance Urine pH Ur Specific [place] Urine Protein Urine Glucose (UA) Urine Ketones Urine Blood Urine Nitrite Urine Bilirubin Urine Urobilinogen Ur Leukocyte Esterase Urine WBC (Auto) Urine RBC (Auto) Ur Epithelial Cells Urine Bacteria Urine Mucus Blood Type Antibody Screen 08/21/17 16:35 RBC 5.52 H D MCV 76.4 L MCHC 32.7 RDW 21.5 H D MPV 7.6 Neutrophils % 70.7 Lymphocytes % 21.0 D Monocytes % 5.7 Eosinophils % 2.3 D Basophils % 0.3 - RADIOLOGY Radiology Studies Ordered: Category Date Time Status TRANSVAGINAL US PREG [US] Stat Ultrasound 08/21/17 16:25 Taken <Anais Hernandez - Last Filed: 08/21/17 20:37> *DC/Admit/Observation/Transfer - Attestations Scribe Attestion: 08/21/17 19:04 Documentation prepared by Reyes Saavedra, acting as certified medical technician for Anais Hernandez MD <Reyes Saavedra - Last Filed: 08/21/17 20:08> <Anais Hernandez - Last Filed: 08/21/17 20:37> Diagnosis at time of Disposition: Threatened - Discharge Dispostion Disposition: HOME Condition at time of disposition: Stable - Patient Instructions Printed Discharge Instructions: DI for Threatened Additional Instructions: 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
== END 2017-08-21 20:44 | disposition home or self-care (01) ==
LOC: JER 14:06
DX: O26.891 Other specified pregnancy related conditions, first trimester (principal); O20.0 Threatened abortion; Z3A.01 Less than 8 weeks gestation of pregnancy
CPT/HCPCS: 36415; 76817-TC; 80053; 81003; 81015; 84702; 85025; 86850; 86900; 86901; 99282-25

== ENCOUNTER 2018-05-10 00:21 | Emergency (ER) | payer BC, OTHER ==
[2018-05-10 00:35] VITALS: TEMP 98.7; BMI 26.9
[2018-05-10] MEDS ORDERED: ALBUTEROL SO4 0.083% IH SOL 2.5 MG/3 ML VIAL.NEB. NEB ONE ×2 (00:58→01:28)
[2018-05-10] MEDS ORDERED: SODIUM CHLORIDE 1,000 ML IV STA (00:58)
[2018-05-10] MEDS ORDERED: methylPREDNISolone NA SUCC 125 MG/2 ML VIAL IVPB ONE (00:58)
[2018-05-10] MEDS ORDERED: FAMOTIDINE 20 MG/50 ML IVPB 20 MG/50 ML MG IVPB ONE ×2 (01:15→01:29)
[2018-05-10] MEDS ORDERED: methylPREDNISolone NA SUCC 125 MG/2 ML VIAL ONE (01:29)
--- NOTE | 2018-05-10 01:36 | PDOC ---
History of Present Illness <Madison Stevenson - Last Filed: 05/10/18 03:05> - General History Source: Patient Exam Limitations: No Limitations - History of Present Illness Initial Comments: 05/10/18 01:31 27 YOF with h/o allergies (nuts, walnuts, abx), asthma and VWF disease presenting with diffuse rash, sore throat and AP/nausea/vomiting after eating rice/chicken dish at [employer] at approx 930pm. took benadryl 25mg PO, but vomited. +rash extending to back, torso, abdomen, neck, face and chest, of "burning" quality. no cp or sob. no diarrhea. 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 <Lindsey Lemons - Last Filed: 05/13/18 09:28> - General Chief Complaint: Allergic Reaction Stated Complaint: ALLERGIC REACTION Time Seen by Provider: 05/10/18 00:37 Past History <Madison Stevenson - Last Filed: 05/10/18 03:05> - Past Medical History Anemia: Yes Asthma: Yes COPD: No GI Disorders: Yes (GERD) - Reproductive History (#): 1 - Suicide/Smoking/Psychosocial Hx Smoking History: Never smoked Have you smoked in the past 12 months: No Information on smoking cessation initiated: No Hx Alcohol Use: No Drug/Substance Use Hx: No Substance Use Type: None <Lindsey Lemons - Last Filed: 05/13/18 09:28> - Past Medical History Allergies/Adverse Reactions: Allergies Allergy/AdvReac Type Severity Reaction Status Date / Time clindamycin phosphate Allergy Severe Rash Verified 05/10/18 00:34 [From Cleocin] Penicillins Allergy Severe Difficulty Verified 05/10/18 00:34 Breathing nuts Allergy Uncoded 05/10/18 00:34 Home Medications: Ambulatory Orders Diphenhydramine [Benadryl -] 50 mg NR TID #12 capsule 05/10/18 EPINEPHrine (EPI-PEN 0.3MG) [Epipen 0.3MG -] 0.3 mg IM ASDIR PRN #2 pens Famotidine [Pepcid] 20 mg PO DAILY 5 Days #5 tablet 05/10/18 Ondansetron HCl [Zofran] 4 mg PO TID PRN #6 tablet 05/10/18 Prednisone [Prednisone 50 MG TABLETS] 50 mg PO DAILY #4 tablet 05/10/18 *Physical Exam - Vital Signs Last Vital Signs Temp Pulse Resp BP Pulse Ox 98.7 F 118 H 22 H 144/96 97 05/10/18 00:25 05/10/18 00:25 05/10/18 00:25 05/10/18 00:25 05/10/18 00:25 <Madison Stevenson - Last Filed: 05/10/18 03:05> - Vital Signs Last Vital Signs Temp Pulse Resp BP Pulse Ox 98.7 F 118 H 22 H 144/96 97 05/10/18 00:25 05/10/18 00:25 05/10/18 00:25 05/10/18 00:25 05/10/18 00:25 - Physical Exam Comments: 05/10/18 01:35 General: Well appearing, awake and alert, NAD. HEENT: NCAT, PERRL, EOMI, clear conjunctiva, anicteric, moist mucus membranes, clear oropharynx. Airway patent, normal phonation. Uvula midline. No sinus tenderness, no oral lesions. Neck: neck supple, FROM Resp: CTAB, normal and even respirations, no respiratory distress CVS: Tachycardic, no murmurs, 2+ peripheral pulses throughout, no peripheral edema Abdomen: soft, NTND, no peritoneal signs. Back: nontender, normal inspection and ROM MSK: no edema, LUTHER x4, ROM intact. No clubbing or cyanosis. normal bulk and tone. Neuro: alert, oriented appropriately; no focal neurologic deficits Skin: warm and well perfused, cap refill <2 sec, +diffuse fine urticaria over arms, neck, face, chest, torso, abdomen, back and buttocks, sparing palms/soles and BLE/perineum. <Lindsey Lemons - Last Filed: 05/13/18 09:28> Heart Score/ECG Review - ECG Impressions Normal ECG: Yes Comment:: 05/10/18 02:02 NSR at 99 bpm, normal intervals and segments. <Lindsey Lemons - Last Filed: 05/13/18 09:28> ED Treatment Course - Medications Given in the ED: ED Medications Discontinued Medications Generic Name Dose Route Start Last Admin Trade Name Freq PRN Reason Stop Dose Admin Albuterol Sulfate 1 amp 05/10/18 00:58 05/10/18 01:49 Ventolin 0.083% Nebulizer Soln - NEB 05/10/18 00:59 1 amp ONCE ONE Administration Diphenhydramine HCl 50 mg 05/10/18 00:58 05/10/18 01:49 Benadryl Injection - IVPB 05/10/18 00:59 50 mg ONCE ONE Administration Famotidine/Sodium Chloride 20 mg in 50 mls @ 100 mls/hr 05/10/18 01:15 01:49 Pepcid 20 Mg Premixed Ivpb - IVPB 05/10/18 01:44 100 mls/hr ONCE ONE Administration Sodium Chloride 1,000 mls @ 1,000 mls/hr 05/10/18 00:58 05/10/18 01:49 Normal Saline - IV 05/10/18 01:57 1,000 mls/hr ASDIR STA Administration Methylprednisolone Sodium Succinate 125 mg 05/10/18 00:58 05/10/18 01:49 Solu-Medrol - IVPB 05/10/18 00:59 125 mg ONCE ONE Administration <Madison Stevenson - Last Filed: 05/10/18 03:05> Medical Decision Making - Medical Decision Making 05/10/18 01:32 27 YOF with severe allergic reaction. no airway compromise or involvement to suggest angioedema. DDx. allergic reaction: hypersensitivity reaction, allergic reaction, anaphylaxis, hives/urticaria. drug rash. dermatitis. serum sickness. vasculitis. medication side effect. -No fevers or systemic findings, clinically well appearing. no mucosal involvement so doubt SJS/TEN. airway patent, doubt anaphylaxis or Dress syndrome. - VS notable for tachycardia. HD appropriate - given urticaria, GI sx, but no bronchospasms - treat with IVF, solumedrol, benadryl IV and pepcid. continue to monitor. duoneb for comfort as no wheezing or stridor. on reassessment, VS normalized. urticaria disappearing. no respiratory distress and feels more comfortable. will clinically monitor closely in the ED, s/o Dr. Acosta pending reeval avoid triggers such as all nuts. 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 told to carry epi pen at all times, refill provided. 05/10/18 02:03 05/13/18 09:27 <Lindsey Lemons - Last Filed: 05/13/18 09:28> *DC/Admit/Observation/Transfer - Discharge Dispostion Decision to Admit order: No <Madison Stevenson - Last Filed: 05/10/18 03:05> - Discharge Dispostion Decision to Admit order: No <Lindsey Lemons - Last Filed: 05/13/18 09:28> Diagnosis at time of Disposition: Allergic reaction - Discharge Dispostion Disposition: HOME Condition at time of disposition: Good - Prescriptions Prescriptions: Diphenhydramine [Benadryl -] 50 mg NR TID #12 capsule EPINEPHrine (EPI-PEN 0.3MG) [Epipen 0.3MG -] 0.3 mg IM ASDIR PRN #2 pens PRN Reason: Wheezing Famotidine [Pepcid] 20 mg PO DAILY 5 Days #5 tablet Ondansetron HCl [Zofran] 4 mg PO TID PRN #6 tablet PRN Reason: Nausea Prednisone [Prednisone 50 MG TABLETS] 50 mg PO DAILY #4 tablet - Referrals Referrals: Therese Lozano [Primary Care Provider] - - Patient Instructions Printed Discharge Instructions: DI for Food Allergy, DI for Peanut Allergy- Adult, DI for Allergy Testing Additional Instructions: carry epi pen at all times, inject in your thigh if you have respiratory distress or airway/breathing problems after trigger such as a food allergy avoid nuts at all times, make sure to note your allergy when eating out take benadryl every 8 hours for the next 2-3 days also take oral prednisone (steroids) to reduce inflammatory reaction, for 3 days. pepcid for upset stomach and nausea follow up with your primary doctor and further allergy testing and treatment for your severe reactions. Print Language: AMHARIC - Post Discharge Activity Forms/Work/School Notes: Back to Work
[2018-05-10 03:23] VITALS: BP 132/72; PULSE 72
--- NOTE | 2018-05-10 10:25 | EKG ---
Test Reason : Blood Pressure : / mmHG Vent. Rate : 099 BPM Atrial Rate : 099 BPM P-R Int : 124 ms QRS Dur : 088 ms QT Int : 346 ms P-R-T Axes : 052 068 034 degrees QTc Int : 444 ms NORMAL SINUS RHYTHM NORMAL ECG WHEN COMPARED WITH ECG OF 23-JAN-2017 03:36, NONSPECIFIC T WAVE ABNORMALITY HAS REPLACED INVERTED T WAVES IN INFERIOR LEADS T WAVE AMPLITUDE HAS INCREASED IN ANTERIOR LEADS Confirmed by MAULIK HEREDIA, ANUPAM ([id number]) on 05/10/2018 10:25:36 AM Referred By: Confirmed By:ANUPAM WILLINGHAM MD
== END 2018-05-10 03:23 | disposition home or self-care (01) ==
LOC: JER 00:21
PROC: 3E033GC Introduction of Other Therapeutic Substance into Peripheral Vein, Percutaneous Approach (ICD-10-PCS; principal; 2018-05-10)
PROC: 3E0337Z Introduction of Electrolytic and Water Balance Substance into Peripheral Vein, Percutaneous Approach (ICD-10-PCS; 2018-05-10)
PROC: 3E0F7GC Introduction of Other Therapeutic Substance into Respiratory Tract, Via Natural or Artificial Opening (ICD-10-PCS; 2018-05-10)
DX: T78.40XA Allergy, unspecified, initial encounter (principal); X58.XXXA Exposure to other specified factors, initial encounter
CPT/HCPCS: 93005; 93010; 99282-25; J7030